=== PATIENT | male | born 1985 | race Caucasian/White ===

== ENCOUNTER 2017-01-20 15:47 | Emergency (ER) | payer MEDICAID ==
[2017-01-20 15:57] VITALS: BP 122/78
--- NOTE | 2017-01-20 16:08 | EDM.PDOC ---
ED HPI Trauma - General Chief Complaint: Lower Extremity Injury/Pain Stated Complaint: R LEG NUMBNESS Time Seen by Provider: 01/20/17 16:08 Source: Reports: Patient History Limitations: Reports: No limitations - History of Present Illness INITIAL COMMENTS - FREE TEXT/NARRATIVE: 31-year-old male presents the ED with complaints of severe pain in his right groin and buttock area his entire leg being numb. States he can't weight-bear on it because it won't hold his weight. No known injuries slips and falls in the last 2-3 days. No other pain or problems. He states he when he went to bed last night he was fine. He is unable to lift the leg off the gurney due to pain in the groin. History is suspect from the get go. Symptom Onset Date: 01/20/17 (Awoke with the symptoms this morning.) Occurred When: this morning Occurred Where: home Method of Injury: other (No known injuries.) Severity: severe (States it so weak and painful to walk on it that he can't walk. He came into the ED in a wheelchair) Pain/Injury Location: Reports: lower extremity, right Associated Symptoms: Reports: no other symptoms Allergies/ADRs: Allergies No Known Allergies Allergy (Verified 04/09/16 00:15) Home Medications: Ambulatory Orders Albuterol [Ventolin HFA] 2 puff INH BID PRN 04/09/16 [Confirmed 01/20/17] Diclofenac Sodium [Voltaren] 50 mg PO TIDMEALS #24 tab.ec 01/20/17 Prednisone [IMW: predniSONE] 20 mg PO BID #15 tab 01/20/17 oxyCODONE HCl/Acetaminophen [Percocet 5-325 mg Tablet] 1 - 2 each PO Q4H PRN # 20 tablet 01/20/17 Past Medical History Respiratory History: Reports: Asthma Social & Family History - Tobacco Use Smoking Status *Q: Current Every Day Smoker Years of Tobacco use: 12 Packs/Tins Daily: 0.5 - Caffeine Use Caffeine Use: Reports: Coffee, Soda - Alcohol Use Days Per Week of Alcohol Use: 7 Number of Drinks Per Day: 4 Total Drinks Per Week: 28 - Recreational Drug Use Recreational Drug Use: Yes Drug Use in Last 12 Months: Yes Recreational Drug Type: Reports: Heroin, Methamphetamine Recreational Drug Use Frequency: Binges - Living Situation & Occupation Occupation: unemployed Review of Systems - Review of Systems Review Of Systems: See Below Constitutional: Denies: chills, diaphoresis, fever, weakness, other Eyes: Reports: no symptoms Ears: Reports: no symptoms Nose: Reports: no symptoms Mouth/Throat: Reports: no symptoms Respiratory: Reports: No Symptoms Cardiovascular: Reports: no symptoms GI/Abdominal: Reports: No symptoms Skin: Reports: no symptoms Neurological: Reports: No Symptoms Psychiatric: Reports: no symptoms Trauma Exam - Physical Exam Exam: See Below Exam Limited By: No limitations General Appearance: Reports: alert, no apparent distress, thin (On the thin side.), other Head: Reports: atraumatic, normocephalic Respiratory Exam: Reports: no respiratory distress, lungs clear, normal breath sounds, no accessory muscle use Cardiovascular: Reports: normal peripheral pulses, regular rate, rhythm, no edema, no gallop, no murmur GI/Abdominal: Reports: normal bowel sounds, soft, non tender, no organomegaly, other (No hernia no inguinal adenopathy on the right side.) Back: Reports: other (He has severe tenderness on palpation throughout the right sacroiliac joint.). Denies: CVA tenderness (R), CVA tenderness (L) Extremities: Reports: no evidence of injury, other (Edition can't lift his right leg off the gurney due to pain. He has pain along the medial aspect of the thigh abductor miguel muscle/tendon distribution. I cannot logroll the leg internally and externally hip with straight leg without causing pain. At the left leg in did cause some pain on external rotation and internal rotation of the hip. Marked pain on palpation of the right sacroiliac joint.). Denies: normal range of motion Neurologic: Reports: no motor/sensory deficits, alert, normal mood/affect, oriented x 3, other (His reflexes in his patellar reflexes are equal and plus and symmetrical as are the ankle jerks.) Skin: Reports: Normal color ( Babinski's are both downgoing.), Warm/dry, Other - Jarad Coma Score Best Eye Response ([place]): (4) open spontaneously (Good dorsalis pedis and posterior tibial pulses on the right side) Best Verbal Response (Jarad): (5) oriented Best Motor Response ([place]): (6) obeys commands Course - Vital Signs Last Recorded V/S: Last Vital Signs Temp 36.7 C 01/20/17 15:53 Pulse 103 H 01/20/17 15:53 Resp 12 01/20/17 15:53 BP 122/78 01/20/17 15:53 Pulse Ox 100 01/20/17 15:53 - Orders/Labs/Meds Orders: Active Orders 24 hr Category Date Time Status Pelvis 1V or 2V [CR] Stat Exams 01/20/17 16:19 Taken Meds: Medications Discontinued Medications Generic Name Dose Route Start Last Admin Trade Name Ankush PRN Reason Stop Dose Admin Indomethacin 50 mg 01/20/17 16:42 01/20/17 16:49 Indocin PO 01/20/17 16:43 50 mg ONETIME ONE Administration Prednisone 30 mg 01/20/17 16:42 01/20/17 16:50 Prednisone PO 01/20/17 16:43 30 mg ONETIME ONE Administration - Radiology Interpretation Free Text/Narrative:: 31-year-old male presents the ED with pain in his right buttock and right medial thigh complains of his entire leg is known and tingling. This was finally went to bed last night. He states he cannot lift the leg up off the gurney due to weakness in the groin. His pain in the distribution of the abductor miguel muscle and tendon in the right groin. Marked tenderness and pain to the right sacroiliac joint. Patellar and ankle reflexes are present. The remainder the leg is of normal color with good pulses. 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 He denies any falls or recent injuries but this remains suspect. He has no fever or chills. Plan one view of the pelvis x-ray to be obtained. - Re-Assessments/Exams Free Text/Narrative Re-Assessment/Exam: 01/20/17 16:44 x-ray of the pelvis is completely normal. SI joints are normal. Hip and acetabulum are normal as well. He appears to have some inflammation in the sacroiliac joint. We'll treat him with prednisone 30 mg orally now and indomethacin 50 mg by mouth as well. He'll be discharged home on prednisone 20 mg twice a day for 5 days and then once daily in the morning for another [address] him on Voltaren 50mg tablets every 8 hours for the next 8 days to relieve inflammation and pain. Since he says he can walk on his leg due to the pain he would be placed on crutches be nonweightbearing until he can walk with little discomfort. On watching him get up from the gurney he appears to have genuine pain. Given script for Percocet 5/325mg tabs 1-2 every 6hrs prn for pain not controlled by Voltaren alone. Departure - Departure Time of Disposition: 16:56 Disposition: Home, Self-Care 01 Condition: fair Clinical Impression: Pain of right anterior lower extremity, Right leg paresthesias Prescriptions: Diclofenac Sodium [Voltaren] 50 mg PO TIDMEALS #24 tab.ec Prednisone [IMW: predniSONE] 20 mg PO BID #15 tab oxyCODONE HCl/Acetaminophen [Percocet 5-325 mg Tablet] 1 - 2 each PO Q4H PRN # 20 tablet PRN Reason: pain relief. Referrals: Nevaeh Humphrey NP [Primary Care Provider] - Forms: ED Department Discharge Additional Instructions: Evaluation in the emergency today in regards to sudden onset of pain in your right hip and groin. This causes the entire leg to feel numb tingly and burning which we call paresthesias. Pain is bad enough to the point that she cannot weight-bear on her own. The pelvis was performed and does not reveal any signs of bone disease and the hip or SI joint. For whatever reason there appears to be inflammation along the abductor miguel tendon insertion site at the groin and in the sacroiliac joint is very inflamed on the right side. There is no inflammation or infection in the right hip joint. Treatment is time to heal. Use prednisone 20 mg in the morning and set supper for the next 5 days and Ventolin morning only for another 5 days. He is Voltaren 50 mg 3 times daily for the next 8 days to relieve pain and inflammation.May use Percocet tabs 5/3235mg 1-2 tabs every 6hrs for pain not controlled by Voltaren alone. To be nonweightbearing crutch walking until you can weight-bear without pain. If not completely back to normal in 7 days time he need to be reviewed. - My Orders Last 24 Hours: My Active Orders 01/20/17 16:19 Pelvis 1V or 2V [CR] Stat - Assessment/Plan Last 24 Hours: My Active Orders 01/20/17 16:19 Pelvis 1V or 2V [CR] Stat
[2017-01-20] MEDS ORDERED: Indomethacin 25 MG Cap PO ONE (16:42)
[2017-01-20] MEDS ORDERED: predniSONE 20 MG Tab PO ONE (16:42)
--- NOTE | 2017-01-21 08:18 | CR ---
Pelvis: AP view of the pelvis was obtained. Comparison: No previous study. Joint spaces within both hips are maintained. Left sacroiliac joint appears narrowed as compared to the right side which is likely positional. No fracture or other abnormality is identified. Impression: 1. Finding felt to be incidental as described above. 2. AP pelvis study is otherwise unremarkable. Diagnostic code #1
== END 2017-01-20 17:07 | disposition home or self-care (01) ==
LOC: JD.ED 15:47
DX: R20.9 Unspecified disturbances of skin sensation (principal); M79.604 Pain in right leg; J45.909 Unspecified asthma, uncomplicated; F17.210 Nicotine dependence, cigarettes, uncomplicated
CPT/HCPCS: 72170; 99284; A9270; 99283

== ENCOUNTER 2017-02-05 07:14 | Emergency (ER) | payer MEDICAID ==
--- NOTE | 2017-02-05 07:35 | EDM.PDOC ---
ED HPI Trauma - General Chief Complaint: Lower Extremity Injury/Pain Stated Complaint: RIGHT LEG PAIN Time Seen by Provider: 02/05/17 07:31 Source: Reports: Patient History Limitations: Reports: No limitations - History of Present Illness INITIAL COMMENTS - FREE TEXT/NARRATIVE: 31-year-old male presents the ED for evaluation of swelling of his right lower extremity. Patient had been seen through the ED by me 2 weeks ago with diffuse pain in the right leg particularly the upper thigh at the abductor miguel insertion and along the SI joint. He been treated with an 8 day course of Voltaren 50 mg 3 times daily and a course of prednisone 20 mg twice a day for 5 days and then one tablet a morning for further 5 days. He states he was able to ambulate still having pain up in the hip and lower back area. However he is appreciated marked swelling of his right lower extremity over the last 3 days. He is too painful to walk on. Note he was discharged on crutches. He has been laying around a good deal and therefore it has increased risk of development of a DVT. No history of previous DVT. History of intravenous drug abuse primarily but with the use of heroin. Symptom Onset Date: 02/02/17 (Initially seen January 20 with right lower extremity pain which we felt was musculoskeletal in origin and sacroiliac joint in origin.) Occurred When: other (Gradual occurrence of the last 3-4 days.) Occurred Where: other Method of Injury: other Severity: moderate (No known injury to the lower extremity.) Pain/Injury Location: Reports: lower extremity, right Associated Symptoms: Reports: no other symptoms (Denies shortness of breath or any pleuritic chest pain or cough no hemoptysis.) Allergies/ADRs: Allergies No Known Allergies Allergy (Verified 02/05/17 07:24) Home Medications: Ambulatory Orders Butalb/Acetaminophen/Caffeine [Esgic 50-325-40 mg Tablet] 1 - 2 each PO Q6H PRN #15 tablet 02/05/17 Furosemide [Lasix] 20 mg PO DAILY #7 tablet 02/05/17 Past Medical History Respiratory History: Reports: Asthma Social & Family History - Tobacco Use Smoking Status *Q: Current Every Day Smoker Years of Tobacco use: 20 Packs/Tins Daily: 0.5 - Caffeine Use Caffeine Use: Reports: Coffee, Soda - Alcohol Use Days Per Week of Alcohol Use: 7 Number of Drinks Per Day: 4 Total Drinks Per Week: 28 - Recreational Drug Use Recreational Drug Use: Yes Drug Use in Last 12 Months: Yes Recreational Drug Type: Reports: Heroin, Methamphetamine Recreational Drug Use Frequency: Binges - Living Situation & Occupation Occupation: unemployed Review of Systems - Review of Systems Review Of Systems: See Below Constitutional: Reports: no symptoms Eyes: Reports: no symptoms Ears: Reports: no symptoms Nose: Reports: no symptoms Mouth/Throat: Reports: no symptoms Respiratory: Reports: No Symptoms Cardiovascular: Reports: no symptoms GI/Abdominal: Reports: No symptoms Genitourinary: Reports: no symptoms Musculoskeletal: Reports: other (Swelling of the right lower extremity particularly the calf is at least double size compared to the left side. There is no erythema of the leg although it is quite warm to palpation along the calf. ) Skin: Reports: no symptoms Neurological: Reports: No Symptoms Psychiatric: Reports: no symptoms Trauma Exam - Physical Exam Exam: See Below Exam Limited By: No limitations General Appearance: Reports: alert, WD/WN, no apparent distress Head: Reports: atraumatic, normocephalic Throat/Mouth: Reports: Normal inspection, Normal lips, Normal teeth, Normal gums , Normal oropharynx Neck: Reports: non-tender, full range of motion, normal alignment Respiratory Exam: Reports: no respiratory distress, lungs clear, normal breath sounds, no accessory muscle use Cardiovascular: Reports: normal peripheral pulses, regular rate, rhythm, no edema, no gallop, no murmur, no rub GI/Abdominal: Reports: normal bowel sounds, soft, non tender, no organomegaly Extremities: Reports: normal range of motion, other (Examination of the right lower extremity shows marked swelling throughout the extremity particularly the calf. The calf is at least 2 times normal size of the other leg. He is good posterior tibialis pulses and dorsalis pedis pulses in spite of the edema of the foot. The edema is troubles past the knee into the distal medial femur area. He is able to lift the leg off the gurney without any issue. He has full internal/external rotation at the hip. He reports is fractionating still operator in the groin and hip area. but is walking on it) Skin: Reports: Normal color - [place] Coma Score Best Eye Response ([place]): (4) open spontaneously Best Verbal Response (Jarad): (5) oriented Best Motor Response (Jarad): (6) obeys commands Clyde Total: 15 Course - Vital Signs Last Recorded V/S: Last Vital Signs Temp 37.1 C 02/05/17 07:24 Pulse 57 L 02/05/17 07:24 Resp 16 02/05/17 07:24 BP 131/108 H 02/05/17 07:24 Pulse Ox 99 02/05/17 07:24 - Orders/Labs/Meds Orders: Active Orders 24 hr Category Date Time Status Peripheral IV Care [RC] . DIRECTED Care 02/05/17 11:13 Active ANTICARDIOLIPIN AB PANEL IGG/M [REF] Stat Lab 02/05/17 08:15 Received ANTITHROMBIN III ACTIVITY [REF] Stat Lab 02/05/17 08:15 Received FACTOR 5 LEIDEN MUTATION [REF] Stat Lab 02/05/17 08:15 Received PROTEIN C AND S ACTIVITY [REF] Stat Lab 02/05/17 08:15 Received Sodium Chloride 0.9% [Saline Flush] Med 02/05/17 11:13 Active 10 ml FLUSH ASDIRECTED PRN Peripheral IV Insertion Adult [OM.PC] Stat Oth 02/05/17 11:13 Ordered Medication Orders Sodium Chloride (Saline Flush) 10 ml FLUSH ASDIRECTED PRN PRN Reason: Keep Vein Open Labs: Laboratory Tests 02/05/17 02/05/17 02/05/17 Range/Units 08:15 08:15 08:15 WBC 7.28 (4.23-9.07) K/mm3 RBC 3.81 L (4.63-6.08) M/mm3 Hgb 12.0 L (13.7-17.5) gm/L Hct 34.7 L (40.1-51.0) % MCV 91.1 (79.0-92.2) fl MCH 31.5 (25.7-32.2) pg MCHC 34.6 (32.2-35.5) g/dl RDW Std Deviation 40.0 (35.1-43.9) fL Plt Count 229 (163-337) K/mm3 MPV 10.1 (9.4-12.3) fl Neutrophils % (Manual) 75 H (40-60) % Band Neutrophils % 1 (0-10) % Lymphocytes % (Manual) 16 L (20-40) % Atypical Lymphs % 0 % Monocytes % (Manual) 5 (2-10) % Eosinophils % (Manual) 3 (0.8-7.0) % Basophils % (Manual) 0 L (0.2-1.2) Platelet Estimate Adequate RBC Morph Comment Normal ESR (0-15) mm/hr PT 10.9 (8.0-13.0) SECONDS INR 1.00 D-Dimer, Quantitative 1.55 H (0.19-0.59) mg/L Sodium 139 (136-145) mEq/L Potassium 3.3 L (3.5-5.1) mEq/L Chloride 102 (98-107) mEq/L Carbon Dioxide 34 H (21-32) mEq/L Anion Gap 6.3 (5-15) BUN 12 (7-18) mg/dL Creatinine 1.2 (0.7-1.3) mg/dL Est Cr Clr Drug Dosing 92.40 mL/min Estimated GFR (MDRD) > 60 (>60) mL/min BUN/Creatinine Ratio 10.0 L (14-18) Glucose 97 (74-106) mg/dL Calcium 8.5 (8.5-10.1) mg/dL Total Bilirubin 0.4 (0.2-1.0) mg/dL AST 37 (15-37) U/L ALT 56 (16-63) U/L Alkaline Phosphatase 46 (46-116) U/L Total Protein 5.8 L (6.4-8.2) g/dl Albumin 3.1 L (3.4-5.0) g/dl Globulin 2.7 gm/dL Albumin/Globulin Ratio 1.2 (1-2) 02/05/17 Range/Units 08:15 WBC (4.23-9.07) K/mm3 RBC (4.63-6.08) M/mm3 Hgb (13.7-17.5) gm/L Hct (40.1-51.0) % MCV (79.0-92.2) fl MCH (25.7-32.2) pg MCHC (32.2-35.5) g/dl RDW Std Deviation (35.1-43.9) fL Plt Count (163-337) K/mm3 MPV (9.4-12.3) fl Neutrophils % (Manual) (40-60) % Band Neutrophils % (0-10) % Lymphocytes % (Manual) (20-40) % Atypical Lymphs % % Monocytes % (Manual) (2-10) % Eosinophils % (Manual) (0.8-7.0) % Basophils % (Manual) (0.2-1.2) Platelet Estimate RBC Morph Comment ESR 14 (0-15) mm/hr PT (8.0-13.0) SECONDS INR D-Dimer, Quantitative (0.19-0.59) mg/L Sodium (136-145) mEq/L Potassium (3.5-5.1) mEq/L Chloride (98-107) mEq/L Carbon Dioxide (21-32) mEq/L Anion Gap (5-15) BUN (7-18) mg/dL Creatinine (0.7-1.3) mg/dL Est Cr Clr Drug Dosing mL/min Estimated GFR (MDRD) (>60) mL/min BUN/Creatinine Ratio (14-18) Glucose (74-106) mg/dL Calcium (8.5-10.1) mg/dL Total Bilirubin (0.2-1.0) mg/dL AST (15-37) U/L ALT (16-63) U/L Alkaline Phosphatase (46-116) U/L Total Protein (6.4-8.2) g/dl Albumin (3.4-5.0) g/dl Globulin gm/dL Albumin/Globulin Ratio (1-2) Meds: Medications Generic Name Dose Route Start Last Admin Trade Name Freq PRN Reason Stop Dose Admin Sodium Chloride 10 ml 02/05/17 11:13 Saline Flush FLUSH ASDIRECTED PRN Keep Vein Open Discontinued Medications Generic Name Dose Route Start Last Admin Trade Name Freq PRN Reason Stop Dose Admin Iopamidol 150 ml 02/05/17 11:28 02/05/17 11:48 Isovue-300 (61%) IVPUSH 02/05/17 11:29 150 ml ONETIME ONE Administration Sodium Chloride 10 ml 02/05/17 11:28 02/05/17 11:48 Saline Flush FLUSH 02/05/17 11:29 10 ml ONETIME ONE Administration - Radiology Interpretation Free Text/Narrative:: 31-year-old male presents the ED for evaluation of diffuse swelling of the right lower extremity. He reports this is occurred over the last 3 days. Of note I had seen to the ED with right lower chimney pain on January 20. We felt it was most the skeletal in origin along the abductor miguel and SI joint area. He was treated with a ten-day course of prednisone initially twice a day and then once daily in the morning for 5 days. Also Voltaren 50 mg 3 times a day for 8 days. He reports the hip and leg got better but he still is limping with pain in his hip area. No x-rays of the hip and pelvis were done at that time and were negative. He reports that the leg has become more swollen particularly the calf over the last 3 days. He can no longer weight-bear. Denies any associated shortness of breath or pleuritic chest pain. Examination shows good pulses to the foot. The calf itself is quite warm to palpation. It is obviously swollen it is tender to palpation medially. Clinically he has a DVT in the right lower extremity. Plan routine labs to include genetic markers for hypercoagulable state. D-dimer also ordered. PT/INR. Ultrasound of the lower extremity but to be carried out. - Re-Assessments/Exams Free Text/Narrative Re-Assessment/Exam: 02/05/17 09:06 labs are back showing a white count of 7.28 with 75% neutrophils 1% bands. Hemoglobin is 12.0 hematocrit is 34.7. Platelets are normal at 229, 000. Coags are normal. D-dimer is mildly elevated at 1.55. Chemistry shows a sodium of 139 potassium of 3.3 bicarbonate is elevated at 34 albumin fresh slightly low at 3.1. 02/05/17 11:17 the ultrasound of the right lower extremity came back revealing no evidence of clot within the deep venous system. A identify subcutaneous in edema throughout the lower extremity. This concerns me about poor lymphatic drainage from the lower extremity on the right side in a splint complaining of right groin pain for the last 3 weeks. Therefore going to have CT pulmonary angiogram and CT abdomen and pelvis carried out to look for any other potential obstructions to the lymphatic drainage system. Lab tests at not point is in any specific direction. 02/05/17 12:24 CT of the chest abdomen and pelvis is been completed. It does not reveal any abnormalities. Spleen is upper limits of normal in size. 12.2 cm. There is no obstructive adenopathy noted no sign of any compressive lesions that would include lymphatic drainage back to the heart. Radiologist reports diffuse body wall edema. Of note he has normal renal function with the GFR greater than 60. Albumin is a little low at 3.1. Plan I'm going to place him on Esgec medication for pain relief and Lasix 20 mg once a day in the morning for the next week to get rid of the extra fluid primarily his right leg. He will followup if not markedly improved in 7 days time. Departure - Departure Time of Disposition: 12:27 Disposition: Home, Self-Care 01 Condition: fair Clinical Impression: Dependent edema Prescriptions: Butalb/Acetaminophen/Caffeine [Esgic 50-325-40 mg Tablet] 1 - 2 each PO Q6H PRN #15 tablet PRN Reason: Pain relief Furosemide [Lasix] 20 mg PO DAILY #7 tablet Forms: ED Department Discharge Additional Instructions: Evaluation in the emergency day done primarily due to presentation with the obviously swollen right lower leg. Worrisome for underlying deep venous thrombosis or blood clot in the leg. Blood tests did not reveal any abnormalities of the kidneys. Doppler ultrasound did not reveal any blood clot within the leg. Therefore CT scan of the chest and abdomen was performed to reveal there was any problem with return of blood or lymphatics from the lower extremities back to the heart. No abnormalities were appreciated on this exam either. Therefore I cannot explain why the right leg remains swollen. Treatment is to elevate the leg as much as possible ideally above the level of the heart appear lying down on the couch place him on a couple of pillows etc. To place you on medication called Lasix which is to be taken once daily in the morning for the next 7 days to reduce the amount of fluid collection in the lower extremity. May use a stick medication one tablet every 6 hours as needed for relief of pain if needed. This will have no ill effects on the kidney to make you retain fluid. - My Orders Last 24 Hours: My Active Orders 02/05/17 08:15 ANTICARDIOLIPIN AB PANEL IGG/M [REF] Stat ANTITHROMBIN III ACTIVITY [REF] Stat FACTOR 5 LEIDEN MUTATION [REF] Stat PROTEIN C AND S ACTIVITY [REF] Stat 02/05/17 11:13 Peripheral IV Care [RC] . DIRECTED Sodium Chloride 0.9% [Saline Flush] 10 ml FLUSH ASDIRECTED PRN Peripheral IV Insertion Adult [OM.PC] Stat - Assessment/Plan Last 24 Hours: My Active Orders 02/05/17 08:15 ANTICARDIOLIPIN AB PANEL IGG/M [REF] Stat ANTITHROMBIN III ACTIVITY [REF] Stat FACTOR 5 LEIDEN MUTATION [REF] Stat PROTEIN C AND S ACTIVITY [REF] Stat 02/05/17 11:13 Peripheral IV Care [RC] . DIRECTED Sodium Chloride 0.9% [Saline Flush] 10 ml FLUSH ASDIRECTED PRN Peripheral IV Insertion Adult [OM.PC] Stat
--- NOTE | 2017-02-05 10:39 | US ---
Right lower extremity deep venous ultrasound: Multiple real-time images were obtained of the right common femoral, proximal greater saphenous, superficial femoral, popliteal, posterior tibial and peroneal veins. Subcutaneous edema is seen within the mid and distal thigh. Incidental lymph node is seen within the right groin. Soft tissue edema is noted within the lower extremity below the knee. Normal phasic flow, augmentation and compression is seen. Impression: 1. Subcutaneous edema. 2. No findings of deep venous thrombosis is seen within the right lower extremity or within the left common femoral vein. Diagnostic code #3
[2017-02-05] MEDS ORDERED: Sodium Chloride 0.9% 10 ML Syringe FLUSH PRN (11:13)
[2017-02-05] MEDS ORDERED: Iopamidol 612 MG/ML 150 ML Bottle IVPUSH ONE (11:28)
[2017-02-05] MEDS ORDERED: Sodium Chloride 0.9% 10 ML Syringe FLUSH ONE (11:28)
--- NOTE | 2017-02-05 12:21 | CT ---
CT chest Technique: Multiple axial sections were obtained through the chest. Intravenous contrast was utilized. Findings: Mediastinum and hilar regions show no adenopathy or mass. No pericardial thickening is seen. Mild atelectasis is seen posteriorly within the left lung base. Lungs otherwise are clear. Bone window settings were reviewed which appear within normal limits for the patient's age. Impression: 1. Incidental left basilar atelectasis. 2. CT study of the chest is otherwise unremarkable. Diagnostic code #2 CT abdomen and pelvis Technique: Multiple axial sections were obtained through the abdomen and pelvis. Intravenous contrast was utilized. No oral contrast was given which limits evaluation of bowel and processes around the bowel. Findings: Liver shows no focal abnormality. Spleen appears within normal limits. Spleen size is 12.2 cm. Adrenal glands show no nodule. Pancreas appears within normal limits. Kidneys show contrast enhancement. Several small adjacent nonobstructing calculi are noted within the left kidney. Diffuse body wall edema is identified. Aorta shows no aneurysmal dilatation. No retroperitoneal adenopathy or mesenteric abnormalities are seen. No pelvic mass or adenopathy is seen. Delayed images shows contrast within the bladder. No mass effect is seen around the internal or external iliac arteries. Bone window settings were reviewed which appear within normal limits for the patient's age. Impression: 1. Diffuse body wall edema. 2. Incidental nonobstructing calculi within the left kidney. 3. No additional abnormality is appreciated on CT study of the abdomen. Diagnostic code #3
[2017-02-05 12:59] VITALS: BP 127/75
== END 2017-02-05 13:00 | disposition home or self-care (01) ==
LOC: JD.ED 07:14
DX: R60.9 Edema, unspecified (principal); Z79.899 Other long term (current) drug therapy; F17.200 Nicotine dependence, unspecified, uncomplicated; F15.90 Other stimulant use, unspecified, uncomplicated; F11.90 Opioid use, unspecified, uncomplicated
CPT/HCPCS: 36415; 71260; 74177; 80053; 81241; 85025; 85300; 85303; 85306; 85379; 85610; 85652; 86147; 93971; 99284; J7050; Q9967

== ENCOUNTER 2017-08-13 00:07 | Emergency (ER) | payer SELFPAY ==
[2017-08-13 00:25] VITALS: BP 149/85
--- NOTE | 2017-08-13 01:32 | EDM.PDOC ---
ED HPI GENERAL MEDICAL PROBLEM - General Chief Complaint: Drug or Alcohol Abuse Stated Complaint: [facility] Time Seen by Provider: 08/13/17 00:44 Source of Information: Reports: Patient, EMS, RN Notes Reviewed History Limitations: Reports: No Limitations - History of Present Illness INITIAL COMMENTS - FREE TEXT/NARRATIVE: The patient was found unresponsive in his home by his girlfriend, who called EMS. EMS reports that they gave a total of 5 mg of IV Narcan, but that there was some infiltration, and they estimate that he received about 4 mg. The patient subsequently woke up, and has remained awake ever since. The patient states that he shot 1/10 g of heroin at an unknown time today. He states that he has been using heroin since he was 23 years old, always by injection, and that he has overdosed on heroin 5 times previously. He states that he also uses methamphetamine by injection, and smokes marijuana. He also drinks alcohol to excess, most recently yesterday. He states that he has been in inpatient treatment 4 or 5 times, most recently while [facility]. He states that he was in [facility] for 9 months, until 04/05/2015. He does not attend any outpatient treatment, such as NA or AA. The patient's PCP is Nevaeh Humphrey. He states that he last saw her about 6 months ago. - Related Data Allergies Allergy/AdvReac Type Severity Reaction Status Date / Time No Known Allergies Allergy Verified 08/13/17 00:14 Past Medical History Respiratory History: Reports: Asthma Psychiatric History: Reports: Addiction - Infectious Disease History Infectious Disease History: Reports: Hepatitis C - Past Surgical History HEENT Surgical History: Reports: Oral Surgery ([place] teeth extraction) Social & Family History - Tobacco Use Smoking Status *Q: Current Every Day Smoker Years of Tobacco use: 23 Packs/Tins Daily: 1.5 Packs/Tins Daily Comment: Down from 2 ppd - Caffeine Use Caffeine Use: Reports: Coffee, Soda - Alcohol Use Alcohol Use History: Yes Days Per Week of Alcohol Use: 7 Number of Drinks Per Day: 5 Total Drinks Per Week: 35 Alcohol Use Frequency: Daily - Recreational Drug Use Recreational Drug Use: Yes Drug Use in Last 12 Months: Yes Recreational Drug Type: Reports: Heroin (by injection), Marijuana/Hashish ( smokes), Methamphetamine (by injection) Recreational Drug Use Frequency: Daily - Living Situation & Occupation Living situation: Reports: Single, with Family (Mother) Occupation: Unemployed ED ROS GENERAL - Review of Systems Review Of Systems: See Below Constitutional: Reports: No Symptoms HEENT: Reports: No Symptoms Respiratory: Reports: No Symptoms Cardiovascular: Reports: No Symptoms Endocrine: Reports: No Symptoms GI/Abdominal: Reports: No Symptoms : Reports: No Symptoms Musculoskeletal: Reports: No Symptoms Skin: Reports: No Symptoms Neurological: Reports: No Symptoms Psychiatric: Reports: No Symptoms Hematologic/Lymphatic: Reports: No Symptoms Immunologic: Reports: No Symptoms - Physical Exam Exam: See Below Exam Limited By: No Limitations General Appearance: Alert, WD/WN, No Apparent Distress Eye Exam: Bilateral Eye: Normal Inspection Ears: Normal External Exam, Hearing Grossly Normal Nose: Normal Inspection, No Blood Throat/Mouth: Normal Inspection, Normal Lips, Normal Voice, No Airway Compromise Head Exam: Atraumatic, Normocephalic Neck: Normal Inspection, Full Range of Motion Respiratory/Chest: No Respiratory Distress, Lungs Clear, Normal Breath Sounds, No Accessory Muscle Use Cardiovascular: Normal Peripheral Pulses, Regular Rate, Rhythm, No Gallop, No JVD, No Murmur, No Rub GI/Abdominal: Normal Bowel Sounds, Soft, Non-Tender, No Organomegaly, No Distention, No Abnormal Bruit, No Mass (Male) Exam: Deferred Rectal (Males) Exam: Deferred Neuro Exam (Abbreviated): Alert, Oriented, Normal Cognition, No Motor/Sensory Deficits Back Exam: Normal Inspection, Full Range of Motion, NT Extremities: Normal Inspection, Normal Range of Motion, No Pedal Edema, Normal Capillary Refill, Other (Numerous track escamilla noted to the bilateral upper extremities) Psychiatric: Normal Affect Skin Exam: Warm, Dry, Intact, Normal Color, No Rash Course - Vital Signs Last Recorded V/S: Last Vital Signs Temp 37.1 C 08/13/17 00:21 Pulse 100 08/13/17 00:21 Resp 21 H 08/13/17 00:21 BP 149/85 H 08/13/17 00:21 Pulse Ox 99 08/13/17 00:21 - Orders/Labs/Meds Labs: Laboratory Tests 08/13/17 08/13/17 08/13/17 Range/Units 01:00 01:00 01:00 WBC 6.19 (4.23-9.07) K/mm3 RBC 4.84 (4.63-6.08) M/mm3 Hgb 15.0 (13.7-17.5) gm/L Hct 44.2 (40.1-51.0) % MCV 91.3 (79.0-92.2) fl MCH 31.0 (25.7-32.2) pg MCHC 33.9 (32.2-35.5) g/dl RDW Std Deviation 44.2 H (35.1-43.9) fL Plt Count 222 (163-337) K/mm3 MPV 10.2 (9.4-12.3) fl Neutrophils % (Manual) 59 (40-60) % Band Neutrophils % 1 (0-10) % Lymphocytes % (Manual) 34 (20-40) % Atypical Lymphs % 0 % Monocytes % (Manual) 3 (2-10) % Eosinophils % (Manual) 3 (0.8-7.0) % Basophils % (Manual) 0 L (0.2-1.2) Platelet Estimate Adequate RBC Morph Comment Normal PT 11.7 (8.0-13.0) SECONDS INR 1.07 APTT 29 (22-36) SECONDS D-Dimer, Quantitative 2.38 H (0.19-0.59) mg/L Sodium 141 (136-145) mEq/L Potassium 4.5 (3.5-5.1) mEq/L Chloride 103 (98-107) mEq/L Carbon Dioxide 29 (21-32) mEq/L Anion Gap 13.5 (5-15) BUN 21 H (7-18) mg/dL Creatinine 1.3 (0.7-1.3) mg/dL Est Cr Clr Drug Dosing 87.69 mL/min Estimated GFR (MDRD) > 60 (>60) mL/min BUN/Creatinine Ratio 16.2 (14-18) Glucose 92 (74-106) mg/dL Lactic Acid (0.4-2.0) mmol/L Calcium 9.0 (8.5-10.1) mg/dL Total Bilirubin 1.6 H (0.2-1.0) mg/dL AST 548 H (15-37) U/L ALT 627 H (16-63) U/L Alkaline Phosphatase 81 (46-116) U/L Creatine Kinase 155 (39-308) U/L Troponin I < 0.017 (0.00-0.056) ng/mL Total Protein 7.4 (6.4-8.2) g/dl Albumin 3.8 (3.4-5.0) g/dl Globulin 3.6 gm/dL Albumin/Globulin Ratio 1.1 (1-2) Salicylates (2.8-20) mg/dL Acetaminophen 0 L (10-30) ug/mL Ethyl Alcohol 0.00 (0.00) gm% 08/13/17 08/13/17 Range/Units 01:00 01:00 WBC (4.23-9.07) K/mm3 RBC (4.63-6.08) M/mm3 Hgb (13.7-17.5) gm/L Hct (40.1-51.0) % MCV (79.0-92.2) fl MCH (25.7-32.2) pg MCHC (32.2-35.5) g/dl RDW Std Deviation (35.1-43.9) fL Plt Count (163-337) K/mm3 MPV (9.4-12.3) fl Neutrophils % (Manual) (40-60) % Band Neutrophils % (0-10) % Lymphocytes % (Manual) (20-40) % Atypical Lymphs % % Monocytes % (Manual) (2-10) % Eosinophils % (Manual) (0.8-7.0) % Basophils % (Manual) (0.2-1.2) Platelet Estimate RBC Morph Comment PT (8.0-13.0) SECONDS INR APTT (22-36) SECONDS D-Dimer, Quantitative (0.19-0.59) mg/L Sodium (136-145) mEq/L Potassium (3.5-5.1) mEq/L Chloride (98-107) mEq/L Carbon Dioxide (21-32) mEq/L Anion Gap (5-15) BUN (7-18) mg/dL Creatinine (0.7-1.3) mg/dL Est Cr Clr Drug Dosing mL/min Estimated GFR (MDRD) (>60) mL/min BUN/Creatinine Ratio (14-18) Glucose (74-106) mg/dL Lactic Acid 1.3 (0.4-2.0) mmol/L Calcium (8.5-10.1) mg/dL Total Bilirubin (0.2-1.0) mg/dL AST (15-37) U/L ALT (16-63) U/L Alkaline Phosphatase (46-116) U/L Creatine Kinase (39-308) U/L Troponin I (0.00-0.056) ng/mL Total Protein (6.4-8.2) g/dl Albumin (3.4-5.0) g/dl Globulin gm/dL Albumin/Globulin Ratio (1-2) Salicylates < 0.2 L (2.8-20) mg/dL Acetaminophen (10-30) ug/mL Ethyl Alcohol (0.00) gm% - Re-Assessments/Exams Free Text/Narrative Re-Assessment/Exam: 08/13/17 01:29 The patient states that he would like to leave AMA. He was hoping that we could notify him of his lab results. I explained we do not have a mechanism to do that. He stated that he wanted to leave AMA, anyway. Following the Narcan given by EMS, the patient has remained awake. Departure - Departure Time of Disposition: 01:30 Disposition: Against Medical Advice 07 Condition: Fair Clinical Impression: Accidental heroin overdose - Discharge Information Referrals: PCP,None [Primary Care Provider] - Additional Instructions: You were seen in the emergency room after being found unresponsive at home. You were provided by the paramedics with Narcan. You suffered a heroin overdose. You have elected to leave the ER AGAINST MEDICAL ADVICE without waiting for your test results. We STRONGLY recommend that you seek professional help to try to get off drugs, either at [facility] or elsewhere. If any other problems, please do not hesitate to return to the ER.
[2017-08-13 01:41] LABS: ACETAMINOPHEN 0 ug/mL (10-30)
== END 2017-08-13 01:31 | disposition left against medical advice (07) ==
LOC: JD.ED 00:07
DX: T40.1X1A Poisoning by heroin, accidental (unintentional), initial encounter (principal); F17.210 Nicotine dependence, cigarettes, uncomplicated; J45.909 Unspecified asthma, uncomplicated; F15.10 Other stimulant abuse, uncomplicated; F12.10 Cannabis abuse, uncomplicated
CPT/HCPCS: 36415; 80053; 82550; 83605; 84484; 85025; 85379; 85610; 85730; 99284; G0480

== ENCOUNTER 2017-09-11 12:01 | Emergency (ER) | payer OTHER ==
[2017-09-11] MEDS ORDERED: Sodium Chloride 0.9% 10 ML Syringe FLUSH PRN (12:07)
[2017-09-11 12:11] VITALS: BP 158/70
[2017-09-11] MEDS ORDERED: Sodium Chloride 0.9% 1,000 ML IV SCH (12:15)
[2017-09-11] MEDS ORDERED: Naloxone 2 MG/2 ML Syringe ONE (13:08)
--- NOTE | 2017-09-11 14:54 | EDM.PDOC ---
ED HPI GENERAL MEDICAL PROBLEM - General Chief Complaint: Drug or Alcohol Abuse Stated Complaint: [facility] Time Seen by Provider: 09/11/17 12:08 Source of Information: Reports: Patient, EMS, Police History Limitations: Reports: No Limitations - History of Present Illness INITIAL COMMENTS - FREE TEXT/NARRATIVE: The patient overdosed on heroin today. He injected and his mother found him. Police gave him 4mg of nitro intranasal and that did help but he was still sleepy so EMS started an IV and gave him 2mg IV. He is alert and talking. He was here last month for an overdose. He admits to using and he has no intentions of stopping. He did not take anything else and he did not consume alcohol. Onset: Sudden Duration: Minutes: Severity: Severe Improves with: Reports: None Worsens with: Reports: None Associated Symptoms: Reports: No Other Symptoms - Related Data Allergies Allergy/AdvReac Type Severity Reaction Status Date / Time No Known Allergies Allergy Verified 09/11/17 12:06 Home Meds: Home Meds . [No Known Home Meds] 09/11/17 [History] Past Medical History Respiratory History: Reports: Asthma Psychiatric History: Reports: Addiction - Infectious Disease History Infectious Disease History: Reports: Hepatitis C - Past Surgical History HEENT Surgical History: Reports: Oral Surgery Social & Family History - Tobacco Use Smoking Status *Q: Current Every Day Smoker Years of Tobacco use: 15 Packs/Tins Daily: 1 - Caffeine Use Caffeine Use: Reports: Coffee, Soda - Alcohol Use Days Per Week of Alcohol Use: 7 Number of Drinks Per Day: 5 Total Drinks Per Week: 35 - Recreational Drug Use Recreational Drug Use: Yes Drug Use in Last 12 Months: Yes Recreational Drug Type: Reports: Heroin Recreational Drug Use Frequency: Daily - Living Situation & Occupation Living situation: Reports: Single, with Family (Mother) Occupation: Unemployed ED ROS GENERAL - Review of Systems Review Of Systems: See Below Constitutional: Reports: No Symptoms HEENT: Reports: No Symptoms Respiratory: Reports: No Symptoms Cardiovascular: Reports: No Symptoms Endocrine: Reports: No Symptoms GI/Abdominal: Reports: No Symptoms : Reports: No Symptoms Musculoskeletal: Reports: No Symptoms - Physical Exam Exam: See Below Exam Limited By: No Limitations General Appearance: Alert, No Apparent Distress Ears: Normal External Exam Nose: Normal Inspection Head Exam: Atraumatic, Normocephalic Neck: Normal Inspection Respiratory/Chest: No Respiratory Distress, Lungs Clear, Normal Breath Sounds Cardiovascular: Regular Rate, Rhythm, No Edema, No Murmur GI/Abdominal: Soft, Non-Tender, No Organomegaly, No Mass Neuro Exam (Abbreviated): Alert, Oriented, No Motor/Sensory Deficits Extremities: Other (Erythema to a vein in the right forearm) Course - Vital Signs Last Recorded V/S: Last Vital Signs Temp 97.1 F 09/11/17 12:06 Pulse 125 H 09/11/17 12:06 Resp 21 H 09/11/17 12:06 BP 158/70 H 09/11/17 12:06 Pulse Ox 100 09/11/17 12:06 - Orders/Labs/Meds Orders: Active Orders 24 hr Category Date Time Status Cardiac Monitoring [RC] . DIRECTED Care 09/11/17 12:07 Active Oxygen Therapy [RC] PRN Care 09/11/17 12:07 Active Peripheral IV Care [RC] . DIRECTED Care 09/11/17 12:08 Active Sodium Chloride 0.9% [Normal Saline] 1,000 ml Med 09/11/17 12:15 Active IV ASDIRECTED Sodium Chloride 0.9% [Saline Flush] Med 09/11/17 12:07 Active 10 ml FLUSH ASDIRECTED PRN Peripheral IV Insertion Adult [OM.PC] Stat Oth 09/11/17 12:07 Ordered Medication Orders Sodium Chloride (Normal Saline) 1,000 mls @ 125 mls/hr IV ASDIRECTED MELISA Last Admin: 09/11/17 12:17 Dose: 125 mls/hr Sodium Chloride (Saline Flush) 10 ml FLUSH ASDIRECTED PRN PRN Reason: Keep Vein Open Last Admin: 09/11/17 12:17 Dose: 10 ml Labs: Laboratory Tests 09/11/17 09/11/17 Range/Units 12:25 12:25 WBC 5.86 (4.23-9.07) K/mm3 RBC 4.50 L (4.63-6.08) M/mm3 Hgb 14.1 (13.7-17.5) gm/L Hct 41.1 (40.1-51.0) % MCV 91.3 (79.0-92.2) fl MCH 31.3 (25.7-32.2) pg MCHC 34.3 (32.2-35.5) g/dl RDW Std Deviation 41.9 (35.1-43.9) fL Plt Count 164 (163-337) K/mm3 MPV 11.2 (9.4-12.3) fl Neut % (Auto) 76.5 H (34.0-67.9) % Lymph % (Auto) 15.5 L (21.8-53.1) % Sebastian % (Auto) 6.1 (5.3-12.2) % Eos % (Auto) 1.5 (0.8-7.0) Baso % (Auto) 0.2 (0.1-1.2) % Neut # (Auto) 4.48 (1.78-5.38) K/mm3 Lymph # (Auto) 0.91 L (1.32-3.57) K/mm3 Sebastian # (Auto) 0.36 (0.30-0.82) K/mm3 Eos # (Auto) 0.09 (0.04-0.54) K/mm3 Baso # (Auto) 0.01 (0.01-0.08) K/mm3 Sodium 139 (136-145) mEq/L Potassium 4.1 (3.5-5.1) mEq/L Chloride 101 (98-107) mEq/L Carbon Dioxide 28 (21-32) mEq/L Anion Gap 14.1 (5-15) BUN 18 (7-18) mg/dL Creatinine 1.4 H (0.7-1.3) mg/dL Est Cr Clr Drug Dosing 78.94 mL/min Estimated GFR (MDRD) 59 (>60) mL/min BUN/Creatinine Ratio 12.9 L (14-18) Glucose 230 H (74-106) mg/dL Calcium 8.5 (8.5-10.1) mg/dL Total Bilirubin 0.7 (0.2-1.0) mg/dL AST 48 H (15-37) U/L ALT 37 (16-63) U/L Alkaline Phosphatase 62 (46-116) U/L Total Protein 6.9 (6.4-8.2) g/dl Albumin 3.6 (3.4-5.0) g/dl Globulin 3.3 gm/dL Albumin/Globulin Ratio 1.1 (1-2) Ethyl Alcohol 0.00 (0.00) gm% Meds: Medications Generic Name Dose Route Start Last Admin Trade Name Ankush PRN Reason Stop Dose Admin Sodium Chloride 1,000 mls @ 125 mls/hr 09/11/17 12:15 09/11/17 12:17 Normal Saline IV 125 mls/hr ASDIRECTED MELISA Administration Sodium Chloride 10 ml 09/11/17 12:07 09/11/17 12:17 Saline Flush FLUSH 10 ml ASDIRECTED PRN Administration Keep Vein Open Discontinued Medications Generic Name Dose Route Start Last Admin Trade Name Freq PRN Reason Stop Dose Admin Naloxone HCl 1 mg 09/11/17 13:00 09/11/17 13:05 Narcan IVPUSH 09/11/17 13:01 1 mg ONETIME ONE Administration Naloxone HCl Confirm 09/11/17 13:08 09/11/17 13:09 Narcan Administered 09/11/17 13:09 Not Given Dose 2 mg .ROUTE .STK-MED ONE - Re-Assessments/Exams Free Text/Narrative Re-Assessment/Exam: 09/11/17 14:50 I ordered an IV and labs. At one time his oxygen saturations went down to the upper 80s so I gave him another dose of narcan of 1mg. He is alert now and his mom is here. I asked him if he was going to stop and he said no. He wants to leave AMA right now. Departure - Departure Time of Disposition: 14:55 Disposition: Against Medical Advice 07 Condition: Good Clinical Impression: Drug dependence Drug overdose Qualifiers: Encounter type: initial encounter Injury intent: accidental or unintentional Qualified Code(s): T50.901A - Poisoning by unspecified drugs, medicaments and biological substances, accidental (unintentional), initial encounter Heroin overdose Qualifiers: Encounter type: initial encounter Injury intent: accidental or unintentional Qualified Code(s): T40.1X1A - Poisoning by heroin, accidental (unintentional), initial encounter - Discharge Information Referrals: Nevaeh Humphrey NP [Primary Care Provider] - Additional Instructions: Do not do heroin. You have almost twice. Seek help to stop using. You can call [facility] at [phone]. You are leaving against medical advice. We need to observe you longer. You still could stop breathing and . - My Orders Last 24 Hours: My Active Orders 09/11/17 12:07 Cardiac Monitoring [RC] . DIRECTED Oxygen Therapy [RC] PRN Sodium Chloride 0.9% [Saline Flush] 10 ml FLUSH ASDIRECTED PRN Peripheral IV Insertion Adult [OM.PC] Stat 09/11/17 12:08 Peripheral IV Care [RC] . DIRECTED 09/11/17 12:15 Sodium Chloride 0.9% [Normal Saline] 1,000 ml IV ASDIRECTED - Assessment/Plan Last 24 Hours: My Active Orders 09/11/17 12:07 Cardiac Monitoring [RC] . DIRECTED Oxygen Therapy [RC] PRN Sodium Chloride 0.9% [Saline Flush] 10 ml FLUSH ASDIRECTED PRN Peripheral IV Insertion Adult [OM.PC] Stat 09/11/17 12:08 Peripheral IV Care [RC] . DIRECTED 09/11/17 12:15 Sodium Chloride 0.9% [Normal Saline] 1,000 ml IV ASDIRECTED
== END 2017-09-11 15:05 | disposition left against medical advice (07) ==
LOC: JD.ED 12:01
DX: T40.1X1A Poisoning by heroin, accidental (unintentional), initial encounter (principal); F11.20 Opioid dependence, uncomplicated; F17.210 Nicotine dependence, cigarettes, uncomplicated
CPT/HCPCS: 36415; 80053; 85025; 96361; 96374; 99285; G0480; J2310; J7040; J7050

== ENCOUNTER 2017-11-08 11:29 | Emergency (ER) | payer SELFPAY ==
[2017-11-08 11:41] VITALS: BP 164/100
--- NOTE | 2017-11-08 12:18 | EDM.PDOC ---
ED HPI GENERAL MEDICAL PROBLEM - General Chief Complaint: Drug or Alcohol Abuse Stated Complaint: [facility] Time Seen by Provider: 11/08/17 12:12 - History of Present Illness INITIAL COMMENTS - FREE TEXT/NARRATIVE: 32-year-old well-established drug addict was found unresponsive in a hotel. Police were on the scene fairly quickly administered 12 mg of intranasal Narcan and he woke up. EMS transferred for him to the emergency room. The patient is very concerned about getting out here quickly. He denies any pain he denies any suicidal wishes or ideation he also denies any wishes to give up heroin. Patient does not have chest pain chest pressure breathing difficulty shortness of breath his brain does not feel foggy his ability to think he thinks is normal. - Related Data Allergies Allergy/AdvReac Type Severity Reaction Status Date / Time No Known Allergies Allergy Verified 11/08/17 11:40 Home Meds: Home Meds . [No Known Home Meds] 09/11/17 [History] Past Medical History Respiratory History: Reports: Asthma Psychiatric History: Reports: Addiction - Infectious Disease History Infectious Disease History: Reports: Hepatitis C - Past Surgical History HEENT Surgical History: Reports: Oral Surgery Social & Family History - Tobacco Use Smoking Status *Q: Current Every Day Smoker Years of Tobacco use: 10 Packs/Tins Daily: 0.5 - Caffeine Use Caffeine Use: Reports: Coffee, Energy Drinks - Alcohol Use Days Per Week of Alcohol Use: 7 Number of Drinks Per Day: 5 Total Drinks Per Week: 35 - Recreational Drug Use Recreational Drug Use: Yes Drug Use in Last 12 Months: Yes Recreational Drug Type: Reports: Heroin Recreational Drug Use Frequency: Binges - Living Situation & Occupation Living situation: Reports: Single, with Family (Mother) Occupation: Unemployed ED ROS GENERAL - Review of Systems Review Of Systems: See Below Constitutional: Reports: No Symptoms HEENT: Reports: No Symptoms Respiratory: Reports: No Symptoms Cardiovascular: Reports: No Symptoms Endocrine: Reports: No Symptoms GI/Abdominal: Reports: No Symptoms : Reports: No Symptoms Musculoskeletal: Reports: No Symptoms Skin: Reports: No Symptoms Neurological: Reports: No Symptoms Psychiatric: Reports: No Symptoms ED EXAM, GENERAL - Physical Exam Exam: See Below Exam Limited By: Other (Patient is cooperative vital signs stable blood pressures little high) General Appearance: Alert, No Apparent Distress Eye Exam: Bilateral Eye: PERRL (Pupil slightly pinpoint) Ears: Normal External Exam, Normal Canal, Hearing Grossly Normal, Normal TMs Nose: Normal Inspection, Normal Mucosa, No Blood Throat/Mouth: Normal Inspection, Normal Lips, Normal Oropharynx, Normal Voice, No Airway Compromise Head: Atraumatic, Normocephalic Neck: Normal Inspection, Supple, Non-Tender, Full Range of Motion Respiratory/Chest: No Respiratory Distress, Lungs Clear, Normal Breath Sounds Cardiovascular: Regular Rate, Rhythm, No Edema, No Murmur GI/Abdominal: Normal Bowel Sounds, Soft, Non-Tender Back Exam: Normal Inspection. No: CVA Tenderness (L), CVA Tenderness (R) Psychiatric: Other (Patient adamantly denies any suicidal wishes radiation he also has no wishes to give up heroin.) Skin Exam: Warm, Dry, Intact, Tattoo(s) EKG INTERPRETATION EKG Date: 11/08/17 Rhythm: NSR [place]: Normal P-Wave: Present QRS: Other (Probably normal border left ventricular hypertrophy) ST-T: Other (On specific nondiagnostic changes) QT: Normal Comparison: NA - No Prior EKG EKG Interpretation Comments: Abnormal EKG Course - Vital Signs Last Recorded V/S: Last Vital Signs Temp 36.9 C 11/08/17 11:36 Pulse 79 11/08/17 11:36 Resp 16 11/08/17 11:36 BP 164/100 H 11/08/17 11:36 Pulse Ox 100 11/08/17 11:36 - Orders/Labs/Meds Orders: Active Orders 24 hr Category Date Time Status EKG Documentation Completion [RC] STAT Care 11/08/17 11:52 Active CBC WITH MANUAL DIFF [HEME] Stat Lab 11/08/17 11:54 Results COMPREHENSIVE METABOLIC PN,CMP [CHEM] Stat Lab 11/08/17 11:54 Received DRUG SCREEN, URINE [URCHEM] Stat Lab 11/08/17 12:03 Ordered ETHANOL BLOOD MEDICAL [CHEM] Stat Lab 11/08/17 11:54 Received URINALYSIS W/MICROSCOPIC [UA W/MICROSCOPIC] [URIN] Stat Lab 11/08/17 12:03 Results Labs: Laboratory Tests 11/08/17 11/08/17 11/08/17 Range/Units 11:50 11:54 12:03 WBC 7.74 (4.23-9.07) K/mm3 RBC 4.64 (4.63-6.08) M/mm3 Hgb 14.4 (13.7-17.5) gm/L Hct 42.4 (40.1-51.0) % MCV 91.4 (79.0-92.2) fl MCH 31.0 (25.7-32.2) pg MCHC 34.0 (32.2-35.5) g/dl RDW Std Deviation 44.0 H (35.1-43.9) fL Plt Count 203 (163-337) K/mm3 MPV 10.5 (9.4-12.3) fl Puncture Site Rt radial ABG pH 7.37 (7.35-7.45) ABG pCO2 41.2 (35.0-45.0) mmHg ABG pO2 89.0 (80.0-100.0) mmHg ABG HCO3 23.4 (22.0-26.0) meq/L ABG O2 Saturation 97.9 H (96.0-97.0) % ABG Base Excess -1.2 (-2-2.0) Mynor Test Positive O2 Delivery Device Room air FiO2 21.00 (21.00-100.00) % Urine Color Yellow (Yellow) Urine Appearance Clear (Clear) Urine pH 6.0 (5.0-8.0) Ur Specific [place] > or = 1.030 (1.005-1.030) Urine Protein 1+ H (Negative) Urine Glucose (UA) Negative (Negative) Urine Ketones Negative (Negative) Urine Occult Blood Negative (Negative) Urine Nitrite Negative (Negative) Urine Bilirubin Negative (Negative) Urine Urobilinogen 0.2 (0.2-1.0) Ur Leukocyte Esterase Negative (Negative) - Re-Assessments/Exams Free Text/Narrative Re-Assessment/Exam: 11/08/17 12:18 He is obviously doing better after his 12 mg of of intranasal Narcan he wants to sign the hospital AMA. I was concerned about this on my initial interview patient is not suicidal his blood gases did come back and are surprisingly normal except his carboxyhemoglobin is elevated at 3.9 smoker. Departure - Departure Time of Disposition: 12:23 Disposition: Against Medical Advice 07 Clinical Impression: Accidental heroin overdose - Discharge Information - My Orders Last 24 Hours: My Active Orders 11/08/17 11:52 EKG Documentation Completion [RC] STAT 11/08/17 11:54 CBC WITH MANUAL DIFF [HEME] Stat COMPREHENSIVE METABOLIC PN,CMP [CHEM] Stat ETHANOL BLOOD MEDICAL [CHEM] Stat 11/08/17 12:03 DRUG SCREEN, URINE [URCHEM] Stat URINALYSIS W/MICROSCOPIC [UA W/MICROSCOPIC] [URIN] Stat - Assessment/Plan Last 24 Hours: My Active Orders 11/08/17 11:52 EKG Documentation Completion [RC] STAT 11/08/17 11:54 CBC WITH MANUAL DIFF [HEME] Stat COMPREHENSIVE METABOLIC PN,CMP [CHEM] Stat ETHANOL BLOOD MEDICAL [CHEM] Stat 11/08/17 12:03 DRUG SCREEN, URINE [URCHEM] Stat URINALYSIS W/MICROSCOPIC [UA W/MICROSCOPIC] [URIN] Stat
== END 2017-11-08 12:16 | disposition left against medical advice (07) ==
LOC: JD.ED 11:29
DX: T40.1X1A Poisoning by heroin, accidental (unintentional), initial encounter (principal); F17.210 Nicotine dependence, cigarettes, uncomplicated
CPT/HCPCS: 36415; 36600; 80053; 80306; 81001; 82803; 85025; 93005; 99285; G0480; 93010

== ENCOUNTER 2018-06-26 02:25 | Emergency (ER) | payer SELFPAY ==
[2018-06-26] MEDS ORDERED: Dextrose 5% in Water 1,000 ML ONE (02:40)
[2018-06-26] MEDS ORDERED: Propofol 200 MG/20 ML SDV ONE (02:43)
[2018-06-26] MEDS ORDERED: Propofol 200 MG/20 ML SDV IVPUSH ONE ×2 (02:43→02:45)
--- NOTE | 2018-06-26 02:47 | EDM.PDOC ---
ED HPI GENERAL MEDICAL PROBLEM - General Stated Complaint: RUTHIE MALE Time Seen by Provider: 06/26/18 02:25 Source of Information: Reports: EMS History Limitations: Reports: Altered Mental Status - History of Present Illness INITIAL COMMENTS - FREE TEXT/NARRATIVE: The patient is brought to the ED, initially as a David Gifford, after being found unresponsive at home, purportedly by his girlfriend, although the history is unclear. EMS reports that the police found the patient slumped over in a chair, indoors. The police gave a single 4 mg dose of Narcan intranasally, then EMS gave 1.5 Amps (3 mg), which caused the patient to wake up, however, he has been grunting and is otherwise noncommunicative. EMS states that they did not see any drug or for around the patient, however, it could have been removed by other residents of the house. - Related Data Allergies Allergy/AdvReac Type Severity Reaction Status Date / Time Unable to Assess Allergy Unverified 06/26/18 03:32 Home Meds: Home Meds . [Unable to Verify Home Med List] 06/26/18 [History] ED ROS GENERAL - Review of Systems Review Of Systems: Unable To Obtain - Physical Exam Exam: See Below Exam Limited By: Physical Impairment General Appearance: WD/WN, Moderate Distress, Other (Awake, grunting, shivering) Eye Exam: Bilateral Eye: EOMI, Normal Inspection Ears: Normal External Exam Nose: Normal Inspection, No Blood Throat/Mouth: Normal Inspection, Normal Lips, Normal Teeth, Normal Gums, Normal Oropharynx, Other (tongue and lower lip piercing) Head Exam: Atraumatic, Normocephalic Neck: Normal Inspection, Full Range of Motion Respiratory/Chest: Other (Difficult to assess lung sounds, as the patient is grunting) Cardiovascular: Normal Peripheral Pulses, No Edema, No Gallop, No JVD, No Murmur , No Rub, Tachycardia GI/Abdominal: Normal Bowel Sounds, Soft, Non-Tender, No Organomegaly, No Distention, No Abnormal Bruit, No Mass (Male) Exam: Normal Inspection, Circumcised Rectal (Males) Exam: Deferred Neuro Exam (Abbreviated): Other (Moves all 4 extremities spontaneously) Back Exam: Normal Inspection, Full Range of Motion, NT Extremities: Normal Inspection, Normal Range of Motion, No Pedal Edema, Normal Capillary Refill Psychiatric: Other (Unable to assess) Skin Exam: Cool, Mottled EKG INTERPRETATION EKG Date: 06/26/18 Time: 03:00 Rhythm: A-Fib Rate (Beats/Min): 143 [place]: Normal (Borderline RAD) P-Wave: Absent QRS: Normal ST-T: Elevated (J-point elevation lateral leads - could be rate-limited repolarization abnormality) QT: Prolonged (QTc 495 ms) Comparison: NA - No Prior EKG Course - Vital Signs Last Recorded V/S: Last Vital Signs Temp 33.7 C L 06/26/18 03:32 Pulse 142 H 06/26/18 03:32 Resp 33 H 06/26/18 03:32 BP 115/90 06/26/18 03:32 Pulse Ox 93 L 06/26/18 03:32 - Orders/Labs/Meds Orders: Active Orders 24 hr Category Date Time Status Accu Check [Blood Glucose Check, Bedside] [RC] ONETIME Care 06/26/18 02:30 Active Accu Check [Blood Glucose Check, Bedside] [RC] ONETIME Care 06/26/18 04:47 Active EKG Documentation Completion [RC] STAT Care 06/26/18 02:28 Active Ang Chest [CT] Stat Exams 06/26/18 03:58 Taken Chest 1V Frontal [CR] Stat Exams 06/26/18 02:28 Taken Chest 1V-Tube Placement Chk NC [CR] Stat Exams 06/26/18 03:03 Taken CULTURE BLOOD [BC] Stat Lab 06/26/18 02:55 Received CULTURE BLOOD [BC] Stat Lab 06/26/18 03:10 Received DRUG SCREEN, URINE [URCHEM] Stat Lab 06/26/18 02:36 Ordered Dextrose 5%-0.9% NaCl [Dextrose 5%-Normal Saline] 1,000 Med 06/26/18 03:00 Active ml IV ASDIRECTED Midazolam [Versed 5 MG/ML] 50 mg Med 06/26/18 03:00 Active Sodium Chloride 0.9% [Normal Saline] 40 ml IV TITRATE Norepinephrine [Levophed] 4 mg Med 06/26/18 03:15 Active Dextrose 5% in Water 246 ml IV TITRATE Propofol [Diprivan 100 ML] 100 ml Med 06/26/18 02:45 Active IV TITRATE Blood Culture x2 Reflex Set [OM.PC] Stat Oth 06/26/18 02:28 Ordered Desired Level of Sedation (RASS) [AST] Click To Edit Oth 06/26/18 03:08 Ordered Medication Orders Dextrose/Sodium Chloride (Dextrose 5%-Normal Saline) 1,000 mls @ 150 mls/hr IV ASDIRECTED MELISA Last Admin: 06/26/18 02:41 Dose: 150 mls/hr Midazolam HCl 50 mg/ Sodium (Chloride) 50 mls @ 8 mls/hr IV TITRATE MELISA; Protocol Last Admin: 06/26/18 02:59 Dose: 8 mg/hr, 8 mls/hr Norepinephrine Bitartrate 4 mg (/ Dextrose/Water) 250 mls @ 18.75 mls/hr IV TITRATE MELISA; Protocol Last Admin: 06/26/18 03:18 Dose: 5 mcg/min, 18.75 mls/hr Propofol (Diprivan 100 Ml) 100 mls @ 36 mls/hr IV TITRATE MELISA; Protocol Last Admin: 06/26/18 02:45 Dose: 75 mcg/kg/min, 36 mls/hr Labs: Laboratory Tests 06/26/18 06/26/18 06/26/18 Range/Units 02:28 02:36 02:55 WBC 18.15 H (4.23-9.07) K/mm3 RBC 4.98 (4.63-6.08) M/mm3 Hgb 15.3 (13.7-17.5) gm/L Hct 45.9 (40.1-51.0) % MCV 92.2 (79.0-92.2) fl MCH 30.7 (25.7-32.2) pg MCHC 33.3 (32.2-35.5) g/dl RDW Std Deviation 45.9 H (35.1-43.9) fL Plt Count 230 (163-337) K/mm3 MPV 10.8 (9.4-12.3) fl Neutrophils % (Manual) 79 H (40-60) % Band Neutrophils % 0 (0-10) % Lymphocytes % (Manual) 17 L (20-40) % Atypical Lymphs % 0 % Monocytes % (Manual) 3 (2-10) % Eosinophils % (Manual) 0 L (0.8-7.0) % Basophils % (Manual) 1 (0.2-1.2) Platelet Estimate Adequate Plt Morphology Comment Normal RBC Morph Comment Normal D-Dimer, Quantitative (0.19-0.50) mg/L Puncture Site Rt radial ABG pH 6.99 L* (7.35-7.45) ABG pCO2 75.0 H* (35.0-45.0) mmHg ABG pO2 69.0 L (80.0-100.0) mmHg ABG HCO3 17.3 L (22.0-26.0) meq/L ABG O2 Saturation 87.5 L (96.0-97.0) % ABG Base Excess -16.7 L (-2-2.0) Mynor Test Positive A-a Gradient 478 mmHg O2 Delivery Device Nonrebreather Oxygen Flow Rate 15.0 FiO2 100.00 (21.00-100.00) % Tidal Volume cc PEEP cmH20 Sodium (136-145) mEq/L Potassium (3.5-5.1) mEq/L Chloride (98-107) mEq/L Carbon Dioxide (21-32) mEq/L Anion Gap (5-15) BUN (7-18) mg/dL Creatinine (0.7-1.3) mg/dL Est Cr Clr Drug Dosing Estimated GFR (MDRD) (>60) mL/min BUN/Creatinine Ratio (14-18) Glucose (74-106) mg/dL Lactic Acid (0.4-2.0) mmol/L Calcium (8.5-10.1) mg/dL Magnesium (1.8-2.4) mg/dl Total Bilirubin (0.2-1.0) mg/dL AST (15-37) U/L ALT (16-63) U/L Alkaline Phosphatase (46-116) U/L Troponin I (0.00-0.056) ng/mL Total Protein (6.4-8.2) g/dl Albumin (3.4-5.0) g/dl Globulin gm/dL Albumin/Globulin Ratio (1-2) Urine Opiates Screen Presumptive positive H (NEGATIVE) Ur Buprenorphine Scrn Negative (NEGATIVE) Ur Oxycodone Screen Negative (NEGATIVE) Urine Methadone Screen Negative (NEGATIVE) Ur Propoxyphene Screen Negative (NEGATIVE) Ur Barbiturates Screen Negative (NEGATIVE) Ur Tricyclics Screen Negative (NEGATIVE) Ur Phencyclidine Scrn Negative (NEGATIVE) Ur Amphetamine Screen Presumptive positive H (NEGATIVE) U Methamphetamines Scrn Negative (NEGATIVE) U Benzodiazepines Scrn Presumptive positive H (NEGATIVE) U Cocaine Metab Screen Negative (NEGATIVE) U Marijuana (THC) Screen Presumptive positive H (NEGATIVE) Ethyl Alcohol (0.00) gm% 06/26/18 06/26/18 06/26/18 Range/Units 02:55 02:55 03:10 WBC (4.23-9.07) K/mm3 RBC (4.63-6.08) M/mm3 Hgb (13.7-17.5) gm/L Hct (40.1-51.0) % MCV (79.0-92.2) fl MCH (25.7-32.2) pg MCHC (32.2-35.5) g/dl RDW Std Deviation (35.1-43.9) fL Plt Count (163-337) K/mm3 MPV (9.4-12.3) fl Neutrophils % (Manual) (40-60) % Band Neutrophils % (0-10) % Lymphocytes % (Manual) (20-40) % Atypical Lymphs % % Monocytes % (Manual) (2-10) % Eosinophils % (Manual) (0.8-7.0) % Basophils % (Manual) (0.2-1.2) Platelet Estimate Plt Morphology Comment RBC Morph Comment D-Dimer, Quantitative 10.87 H (0.19-0.50) mg/L Puncture Site ABG pH (7.35-7.45) ABG pCO2 (35.0-45.0) mmHg ABG pO2 (80.0-100.0) mmHg ABG HCO3 (22.0-26.0) meq/L ABG O2 Saturation (96.0-97.0) % ABG Base Excess (-2-2.0) Mynor Test A-a Gradient mmHg O2 Delivery Device Oxygen Flow Rate FiO2 (21.00-100.00) % Tidal Volume cc PEEP cmH20 Sodium 142 (136-145) mEq/L Potassium 4.2 (3.5-5.1) mEq/L Chloride 102 (98-107) mEq/L Carbon Dioxide 17 L (21-32) mEq/L Anion Gap 27.2 H (5-15) BUN 30 H (7-18) mg/dL Creatinine 3.3 H (0.7-1.3) mg/dL Est Cr Clr Drug Dosing TNP Estimated GFR (MDRD) 22 (>60) mL/min BUN/Creatinine Ratio 9.1 L (14-18) Glucose 75 (74-106) mg/dL Lactic Acid 8.5 H (0.4-2.0) mmol/L Calcium 8.6 (8.5-10.1) mg/dL Magnesium 2.8 H (1.8-2.4) mg/dl Total Bilirubin 1.4 H (0.2-1.0) mg/dL AST 605 H (15-37) U/L ALT 493 H (16-63) U/L Alkaline Phosphatase 127 H (46-116) U/L Troponin I 0.139 H* (0.00-0.056) ng/mL Total Protein 7.8 (6.4-8.2) g/dl Albumin 3.9 (3.4-5.0) g/dl Globulin 3.9 gm/dL Albumin/Globulin Ratio 1.0 (1-2) Urine Opiates Screen (NEGATIVE) Ur Buprenorphine Scrn (NEGATIVE) Ur Oxycodone Screen (NEGATIVE) Urine Methadone Screen (NEGATIVE) Ur Propoxyphene Screen (NEGATIVE) Ur Barbiturates Screen (NEGATIVE) Ur Tricyclics Screen (NEGATIVE) Ur Phencyclidine Scrn (NEGATIVE) Ur Amphetamine Screen (NEGATIVE) U Methamphetamines Scrn (NEGATIVE) U Benzodiazepines Scrn (NEGATIVE) U Cocaine Metab Screen (NEGATIVE) U Marijuana (THC) Screen (NEGATIVE) Ethyl Alcohol 0.00 (0.00) gm% 06/26/18 Range/Units 03:45 WBC (4.23-9.07) K/mm3 RBC (4.63-6.08) M/mm3 Hgb (13.7-17.5) gm/L Hct (40.1-51.0) % MCV (79.0-92.2) fl MCH (25.7-32.2) pg MCHC (32.2-35.5) g/dl RDW Std Deviation (35.1-43.9) fL Plt Count (163-337) K/mm3 MPV (9.4-12.3) fl Neutrophils % (Manual) (40-60) % Band Neutrophils % (0-10) % Lymphocytes % (Manual) (20-40) % Atypical Lymphs % % Monocytes % (Manual) (2-10) % Eosinophils % (Manual) (0.8-7.0) % Basophils % (Manual) (0.2-1.2) Platelet Estimate Plt Morphology Comment RBC Morph Comment D-Dimer, Quantitative (0.19-0.50) mg/L Puncture Site Rt radial ABG pH 7.20 L (7.35-7.45) ABG pCO2 46.1 H (35.0-45.0) mmHg ABG pO2 65.0 L (80.0-100.0) mmHg ABG HCO3 17.5 L (22.0-26.0) meq/L ABG O2 Saturation 90.7 L (96.0-97.0) % ABG Base Excess -10.2 L (-2-2.0) Mynor Test Positive A-a Gradient 102 mmHg O2 Delivery Device Ventilator Oxygen Flow Rate 0.0 FiO2 35.00 (21.00-100.00) % Tidal Volume 450.0 cc PEEP 5.0 cmH20 Sodium (136-145) mEq/L Potassium (3.5-5.1) mEq/L Chloride (98-107) mEq/L Carbon Dioxide (21-32) mEq/L Anion Gap (5-15) BUN (7-18) mg/dL Creatinine (0.7-1.3) mg/dL Est Cr Clr Drug Dosing Estimated GFR (MDRD) (>60) mL/min BUN/Creatinine Ratio (14-18) Glucose (74-106) mg/dL Lactic Acid (0.4-2.0) mmol/L Calcium (8.5-10.1) mg/dL Magnesium (1.8-2.4) mg/dl Total Bilirubin (0.2-1.0) mg/dL AST (15-37) U/L ALT (16-63) U/L Alkaline Phosphatase (46-116) U/L Troponin I (0.00-0.056) ng/mL Total Protein (6.4-8.2) g/dl Albumin (3.4-5.0) g/dl Globulin gm/dL Albumin/Globulin Ratio (1-2) Urine Opiates Screen (NEGATIVE) Ur Buprenorphine Scrn (NEGATIVE) Ur Oxycodone Screen (NEGATIVE) Urine Methadone Screen (NEGATIVE) Ur Propoxyphene Screen (NEGATIVE) Ur Barbiturates Screen (NEGATIVE) Ur Tricyclics Screen (NEGATIVE) Ur Phencyclidine Scrn (NEGATIVE) Ur Amphetamine Screen (NEGATIVE) U Methamphetamines Scrn (NEGATIVE) U Benzodiazepines Scrn (NEGATIVE) U Cocaine Metab Screen (NEGATIVE) U Marijuana (THC) Screen (NEGATIVE) Ethyl Alcohol (0.00) gm% Meds: Medications Generic Name Dose Route Start Last Admin Trade Name Freq PRN Reason Stop Dose Admin Dextrose/Sodium Chloride 1,000 mls @ 150 mls/hr 06/26/18 03:00 06/26/18 02:41 Dextrose 5%-Normal Saline IV 150 mls/hr ASDIRECTED MELISA Administration Midazolam HCl 50 mg/ Sodium 50 mls @ 8 mls/hr 06/26/18 03:00 06/26/18 02:59 Chloride IV 8 mg/hr TITRATE MELISA 8 mls/hr Administration Protocol 8 MG/HR Norepinephrine Bitartrate 4 mg 250 mls @ 18.75 mls/hr 06/26/18 03:15 03:18 / Dextrose/Water IV 5 mcg/min TITRATE MELISA 18.75 mls/hr Administration Protocol 5 MCG/MIN Propofol 100 mls @ 36 mls/hr 06/26/18 02:45 06/26/18 02:45 Diprivan 100 Ml IV 75 mcg/kg/min TITRATE MELISA 36 mls/hr Administration Protocol 75 MCG/KG/MIN Discontinued Medications Generic Name Dose Route Start Last Admin Trade Name Ankush PRN Reason Stop Dose Admin Enoxaparin Sodium 80 mg 06/26/18 04:02 06/26/18 04:34 Lovenox SUBCUT 06/26/18 04:03 80 mg ONETIME ONE Administration Ampicillin Sodium/Sulbactam 100 mls @ 200 mls/hr 06/26/18 03:41 06/26/18 04: 45 Sodium 3 gm/ Sodium Chloride IV 06/26/18 04:10 200 mls/hr ONETIME ONE Administration Sodium Chloride 100 mls @ 4 mls/sec 06/26/18 04:07 06/26/18 04:31 Normal Saline IV 06/26/18 04:08 4 mls/sec ONETIME ONE Administration Iopamidol 100 ml 06/26/18 04:07 06/26/18 04:31 Isovue-370 (76%) IVPUSH 06/26/18 04:08 100 ml ONETIME ONE Administration Midazolam HCl 5 mg 06/26/18 02:55 06/26/18 04:16 Versed 1 Mg/Ml IVPUSH 06/26/18 02:56 5 mg ONETIME ONE Administration Propofol 50 mg 06/26/18 02:43 06/26/18 02:43 Diprivan 20 Ml IVPUSH 06/26/18 02:44 50 mg ONETIME ONE Administration Propofol 50 mg 06/26/18 02:45 06/26/18 02:45 Diprivan 20 Ml IVPUSH 06/26/18 02:46 50 mg ONETIME ONE Administration - Re-Assessments/Exams Free Text/Narrative Re-Assessment/Exam: 06/26/18 02:53 The patient's ABG returned demonstrating a combined respiratory acidosis and metabolic acidosis, along with hypoxemia. Emergent endotracheal intubation was indicated. Rectal temperature was found to be 92.6. A bear hugger was placed. The patient was sedated with IV propofol. An 8.0 ETT was placed to 25 cm at the incisors using a Mac 3 laryngoscope, without difficulty. Initial propofol drip was set at 75 mcg/kg/m, increased to 100 mcg/kg/m, however , not only did this inadequately sedate the patient, but his blood pressure dropped into the 70s as well, therefore a Versed drip was ordered, and the propofol has been discontinued. Accu-Chek returned as 62. D5 NS was initially ordered at 150 mL per hour, however, the patient has received a bolus due to low blood pressure. Pre-intubation portable chest radiograph appears to demonstrate a cardiac silhouette within normal limits. No pulmonary vascular congestion. No pleural effusions. There appear to be bilateral lower lobe hazy infiltrates, consistent with aspiration. No pneumothorax. Formal read per the Radiologist pending. Post-intubation portable chest radiograph also appears to demonstrate a cardiac silhouette within normal limits. No pulmonary vascular congestion. No pleural effusions. There appear to be bilateral lower lobe hazy infiltrates, consistent with aspiration. No pneumothorax. The tip of the ET tube is about 2.5 cm above the carlo. There is an OG tube to the stomach via the esophagus. Formal read per the Radiologist pending. 06/26/18 03:08 Despite discontinuing the propofol, the patient's blood pressure has persisted and the 70s. I have ordered Levophed to start at 5 mcg/m. 06/26/18 03:24 The patient's ECG indicates that he is in atrial fibrillation with rapid ventricular response. Because of his hypotension, I am not going to start a rate -limiting agent at this time. 06/26/18 03:41 I have ordered Unasyn 3 g for empiric treatment of presumptive aspiration pneumonia. 2 sets of blood cultures were obtained earlier. 06/26/18 03:59 The patient's repeat ABG shows significant improvement, although still with some respiratory and metabolic acidosis. The patient is overbreathing the vent, therefore I will not make any changes. The patient's D-dimer has returned substantially elevated at 10.87, and his troponin elevated at 0.139. His chemistry panel shows an anion gap metabolic acidosis, with a bicarbonate of 17 and an anion gap of 27.2. His BUN/Cr are elevated at 30/3.3. Although both his elevated D-dimer and troponin may be due to his renal insufficiency, given his respiratory failure, I have ordered a CT angiogram of the chest to evaluate for a PE, and will order empiric Lovenox at this time. The patient's lactic acid level is substantially elevated at 8.5, and his LFTs are elevated, as well. I suspect that these are due to systemic hypoxemia, likely because of hypoventilation due to opioid overdose. 06/26/18 04:47 CT angiogram of the chest is read by [facility] as: Large amount of airspace disease. Is a patchy process but becomes fairly confluent in the posterior basal segments and posterior aspects of the lower lobes in general. It has a bronchovascular bundle distribution. Nonspecific. The dependent distribution favors a large aspiration event with aspiration pneumonitis. Atypical infection also on the differential diagnosis. 06/26/18 04:50 Repeat Accu-Chek is 84. 06/26/18 05:13 Case discussed with Clem at [facility] at 04:51. Their ICU is full, therefore they cannot accept the patient. Reviewing the patient's monitor, it appears the patient has spontaneously converted to a normal sinus rhythm. Case then discussed with Hamzah at [facility] at 05:00. Case then discussed with Dr. Soto, cook fishing vessel at [facility], at 05:07. He accepted the patient for transfer to their ICU. We will transfer the patient by ground ambulance. Portable chest radiograph and CT angiogram images pushed to [facility] at 05:13. 06/26/18 05:36 The patient's most recent temperature is normal. Departure - Departure Time of Disposition: 05:15 Disposition: DC/Tfer to Acute Hospital 02 Condition: Serious Clinical Impression: Aspiration pneumonia, Hypercapnic respiratory failure, Sepsis, Lactic acidosis , Hypotension, Elevated troponin, Atrial fibrillation with rapid ventricular response, Heroin overdose, Polysubstance abuse, Hypothermia - Discharge Information *PRESCRIPTION DRUG MONITORING PROGRAM REVIEWED*: Not Applicable *COPY OF PRESCRIPTION DRUG MONITORING REPORT IN PATIENT MAITE: Not Applicable Referrals: PCP,Unknown [Primary Care Provider] - - My Orders Last 24 Hours: My Active Orders 06/26/18 02:28 EKG Documentation Completion [RC] STAT Chest 1V Frontal [CR] Stat Blood Culture x2 Reflex Set [OM.PC] Stat 06/26/18 02:30 Accu Check [Blood Glucose Check, Bedside] [RC] ONETIME 06/26/18 02:36 DRUG SCREEN, URINE [URCHEM] Stat 06/26/18 02:45 Propofol [Diprivan 100 ML] 100 ml IV TITRATE 06/26/18 02:55 CULTURE BLOOD [BC] Stat 06/26/18 03:00 Dextrose 5%-0.9% NaCl [Dextrose 5%-Normal Saline] 1,000 ml IV ASDIRECTED Midazolam [Versed 5 MG/ML] 50 mg Sodium Chloride 0.9% [Normal Saline] 40 ml IV TITRATE 06/26/18 03:03 Chest 1V-Tube Placement Chk NC [CR] Stat 06/26/18 03:08 Desired Level of Sedation (RASS) [AST] Click To Edit 06/26/18 03:10 CULTURE BLOOD [BC] Stat 06/26/18 03:15 Norepinephrine [Levophed] 4 mg Dextrose 5% in Water 246 ml IV TITRATE 06/26/18 03:58 Ang Chest [CT] Stat 06/26/18 04:47 Accu Check [Blood Glucose Check, Bedside] [RC] ONETIME - Assessment/Plan Last 24 Hours: My Active Orders 06/26/18 02:28 EKG Documentation Completion [RC] STAT Chest 1V Frontal [CR] Stat Blood Culture x2 Reflex Set [OM.PC] Stat 06/26/18 02:30 Accu Check [Blood Glucose Check, Bedside] [RC] ONETIME 06/26/18 02:36 DRUG SCREEN, URINE [URCHEM] Stat 06/26/18 02:45 Propofol [Diprivan 100 ML] 100 ml IV TITRATE 06/26/18 02:55 CULTURE BLOOD [BC] Stat 06/26/18 03:00 Dextrose 5%-0.9% NaCl [Dextrose 5%-Normal Saline] 1,000 ml IV ASDIRECTED Midazolam [Versed 5 MG/ML] 50 mg Sodium Chloride 0.9% [Normal Saline] 40 ml IV TITRATE 06/26/18 03:03 Chest 1V-Tube Placement Chk NC [CR] Stat 06/26/18 03:08 Desired Level of Sedation (RASS) [AST] Click To Edit 06/26/18 03:10 CULTURE BLOOD [BC] Stat 06/26/18 03:15 Norepinephrine [Levophed] 4 mg Dextrose 5% in Water 246 ml IV TITRATE 06/26/18 03:58 Ang Chest [CT] Stat 06/26/18 04:47 Accu Check [Blood Glucose Check, Bedside] [RC] ONETIME ED ET INTUBATION - Endotracheal Intubation Time of Intubation: 02:45 ET Intubation Indication: Respiratory Failure Preparation: Suction, Balloon Tested, BVM Set Up, Difficult Airway Equip Pre-oxygenation: assisted with BVM, 100% FiO2, spontaneous breathing Paralysis: propofol (diprivan) Placement: Orotracheal, Cuffed, Uncomplicated Placement ETT Size In mm: 8.0 Number of Attempts: 1 Post intubation tube placement confirmed by: capnometry, CO2 change, tube fog, chest rise, bilateral breath sounds, CXR Tube Secured By: By RT (25 cm at the incisors)
[2018-06-26] MEDS ORDERED: Midazolam 5 MG/ML 5 ML MDV ONE (02:55)
[2018-06-26] MEDS ORDERED: Sodium Chloride 0.9% 100 ML ONE (02:55)
[2018-06-26] MEDS ORDERED: Midazolam 1 MG/ML 5 ML SDV IVPUSH ONE (02:55)
[2018-06-26] MEDS ORDERED: Dextrose 5%-0.9% NaCl 1,000 ML IV SCH (03:00)
[2018-06-26] MEDS ORDERED: Midazolam 50 MG in Sodium Chloride 0.9% 40 ML IV SCH (03:00)
[2018-06-26] MEDS ORDERED: Norepinephrine 4 MG in Dextrose 5% in Water 246 ML IV SCH ×2 (03:15)
[2018-06-26 03:41] VITALS: BP 115/90
[2018-06-26] MEDS ORDERED: Ampicillin/Sulbactam Na 3 GM in Sodium Chloride 0.9% 100 ML IV ONE (03:41)
[2018-06-26] MEDS ORDERED: Enoxaparin 80 MG/0.8 ML Syringe SUBCUT ONE (04:02)
[2018-06-26] MEDS ORDERED: Iopamidol 755 Mg/ML 100 ML Bottle IVPUSH ONE (04:07)
[2018-06-26] MEDS ORDERED: Sodium Chloride 0.9% 100 ML IV ONE (04:07)
--- NOTE | 2018-06-29 07:30 | CT ---
CT chest Technique: Multiple axial sections were obtained from above the lung apices inferiorly through the lung bases. Intravenous contrast was utilized. Study has been performed as a pulmonary angiogram protocol. Comparison: Prior chest x-ray performed earlier on the same day (2:58 AM). Findings: Endotracheal tube is seen. Tip lies slightly above the carlo in satisfactory position. Nasogastric tube is seen with tip lying within the stomach. Pulmonary arteries are well opacified. No filling defects are seen to indicate pulmonary embolism. Mediastinum and hilar regions show no adenopathy or mass. No pericardial thickening is seen. Small portion of the visualized upper abdominal structures show a nonobstructing stone within the left kidney measuring approximately 7.6 mm. Diffuse parenchymal densities are seen within both lower lungs as well as lesser parenchymal change within the upper lungs as well as right middle lobe. Bone window settings were reviewed which appear within normal limits for the patient's age. Impression: 1. Diffuse parenchymal densities within both lungs worse within both lung bases. Differential includes aspiration pneumonia, diffuse non-aspiration pneumonia as well as atypical infection. 2. Satisfactory position of endotracheal tube and nasogastric tube. 3. Other incidental findings as noted above. Diagnostic code #5 I agree with preliminary report from [facility], finalized at 06/26/18, 5:44 AM Central Time
--- NOTE | 2018-06-29 08:37 | CR ---
Chest: Frontal view of the chest was obtained. Comparison: No prior chest x-ray. Increased parenchymal density is seen within both lungs as well as mild interstitial change throughout both lungs. Heart size and mediastinum are normal. Bony structures are unremarkable. Impression: 1. Mild increased density within both sides of chest as noted above. Diagnostic code #3
--- NOTE | 2018-06-29 08:37 | CR ---
Chest: Portable view of the chest was obtained. Comparison: Prior chest x-ray performed earlier on the same day (2:27 AM). Endotracheal tube is seen. Tip lies slightly below the inferior level of the clavicles in satisfactory position. Nasogastric tube is seen with tip coursing off the edge of the film into the stomach. Increasing parenchymal densities are seen within both lung bases. Mild perihilar interstitial change is seen. Bony structures are grossly intact. Impression: 1. Increasing parenchymal densities from prior chest x-ray. 2. Satisfactory position of endotracheal tube and nasogastric tube. Diagnostic code #3
== END 2018-06-26 06:14 ==
LOC: EDBD 02:25 → JD.ED 02:25 → MERGE 02:25 → JD.ED 06:14
DX: A41.9 Sepsis, unspecified organism (principal); R65.20 Severe sepsis without septic shock; J96.02 Acute respiratory failure with hypercapnia; T40.1X1A Poisoning by heroin, accidental (unintentional), initial encounter; T68.XXXA Hypothermia, initial encounter; J69.0 Pneumonitis due to inhalation of food and vomit; E87.2 Acidosis; I95.9 Hypotension, unspecified; I48.91 Unspecified atrial fibrillation; F15.10 Other stimulant abuse, uncomplicated
CPT/HCPCS: 31500; 36415; 36600; 51702; 71045; 71275; 80053; 80306; 82803; 82962; 83605; 83735; 84484; 85007; 85027; 85379; 87040; 93005; 96365; 96366; 96372; 96375; 96376; 99291; 99292; G0480; J0295; J1650; J2250; J2704; J7030; J7042; J7050; J7060; Q9967; 93010; 99285-25

== ENCOUNTER 2019-03-26 20:19 | Emergency (ER) | payer MEDICAID ==
[2019-03-26 20:37] VITALS: BP 128/97
[2019-03-26] MEDS ORDERED: Haloperidol Lactate 5 MG/ML SDV IM ONE (21:48)
[2019-03-26] MEDS ORDERED: LORazepam 2 MG/ML SDV IVPUSH ONE (21:49)
--- NOTE | 2019-03-26 22:02 | EDM.PDOC ---
ED HPI GENERAL MEDICAL PROBLEM - General Chief Complaint: Chest Pain Stated Complaint: [facility] Time Seen by Provider: 03/26/19 21:10 Source of Information: Reports: Patient, EMS History Limitations: Reports: No Limitations - History of Present Illness INITIAL COMMENTS - FREE TEXT/NARRATIVE: 33 y/o male presents to ER with cc chest pain. He reports the pain started about 4 hours ago. He states the pain is on the left side of his chest. he describes the pain as a stabbing pain. It does not radiate or move. He denies SOB, nausea, vomiting, back pain or jaw pain. He has no fever or chills. He admits to using heroin last 2 weeks ago. He was incarcerated earlier today, he states he was sitting on bunk when started. He is accompanied by law officer. He has a history of substance abuse. He stats he has a history of cardiac issues but doesn't take any medications. He does not appear to be in any distress at this time. He is hyperactive and is hyperventilating during examination. Onset: Today Onset Date: 03/26/19 Onset Time: 17:00 Duration: Getting Worse, Intermittent Location: Reports: Chest Quality: Reports: Ache, Stabbing Severity: Mild Improves with: Reports: None Worsens with: Reports: None Associated Symptoms: Reports: Chest Pain. Denies: Cough, Diaphoresis, Nausea/ Vomiting, Shortness of Breath, Syncope, Weakness Left Upper Chest Pain Score (Numeric/FACES): 8 - Related Data Allergies Allergy/AdvReac Type Severity Reaction Status Date / Time No Known Allergies Allergy Verified 03/26/19 20:24 Home Meds: Home Meds . [No Known Home Meds] 09/11/17 [History] Past Medical History Cardiovascular History: Reports: Cardiomyopathy Respiratory History: Reports: Asthma Psychiatric History: Reports: Addiction - Infectious Disease History Infectious Disease History: Reports: Hepatitis C - Past Surgical History HEENT Surgical History: Reports: Oral Surgery Social & Family History - Tobacco Use Smoking Status *Q: Current Every Day Smoker Years of Tobacco use: 19 Packs/Tins Daily: 1 - Caffeine Use Caffeine Use: Reports: Coffee, Energy Drinks - Alcohol Use Days Per Week of Alcohol Use: 5 Number of Drinks Per Day: 10 Total Drinks Per Week: 50 - Recreational Drug Use Recreational Drug Use: Yes Drug Use in Last 12 Months: Yes Recreational Drug Type: Reports: Heroin - Living Situation & Occupation Living situation: Reports: with Family, Single Occupation: Unemployed ED ROS GENERAL - Review of Systems Review Of Systems: See Below Constitutional: Denies: Fever, Chills HEENT: Reports: No Symptoms Respiratory: Denies: Shortness of Breath Cardiovascular: Reports: Chest Pain Endocrine: Reports: No Symptoms GI/Abdominal: Reports: No Symptoms : Reports: No Symptoms Musculoskeletal: Denies: Neck Pain, Back Pain Skin: Reports: No Symptoms Neurological: Reports: No Symptoms Psychiatric: Reports: Agitation, Anxiety Hematologic/Lymphatic: Reports: No Symptoms Immunologic: Reports: No Symptoms ED EXAM, GENERAL - Physical Exam Exam: See Below General Appearance: Alert, WD/WN, No Apparent Distress Neck: Normal Inspection, Supple, Non-Tender, Full Range of Motion Respiratory/Chest: No Respiratory Distress, Lungs Clear, Normal Breath Sounds, No Accessory Muscle Use Cardiovascular: Normal Peripheral Pulses, Regular Rate, Rhythm, No Edema, No Gallop, No JVD, No Murmur, No Rub GI/Abdominal: Normal Bowel Sounds, Soft, Non-Tender, No Organomegaly, No Distention, No Abnormal Bruit, No Mass, Pelvis Stable Back Exam: Normal Inspection, Full Range of Motion Extremities: Normal Inspection, Normal Range of Motion, Non-Tender, No Pedal Edema, Normal Capillary Refill Neurological: Alert, Oriented, CN II-XII Intact, Normal Cognition, Normal Gait Psychiatric: Anxious Skin Exam: Warm, Dry, Intact, Normal Color, No Rash Lymphatic: No Adenopathy EKG INTERPRETATION EKG Date: 03/26/19 Time: 20:31 Rhythm: NSR Rate (Beats/Min): 90 Course - Vital Signs Last Recorded V/S: Last Vital Signs Temp 97.8 F 03/26/19 20:24 Pulse 96 03/26/19 20:24 Resp 42 H 03/26/19 20:24 BP 128/97 H 03/26/19 20:24 Pulse Ox 99 03/26/19 20:24 - Orders/Labs/Meds Orders: Active Orders 24 hr Category Date Time Status EKG Documentation Completion [RC] STAT Care 03/26/19 20:39 Active Chest 2V [CR] Stat Exams 03/26/19 20:39 Taken Labs: Laboratory Tests 03/26/19 03/26/19 03/26/19 Range/Units 20:42 20:42 20:45 WBC 9.89 H (4.23-9.07) K/mm3 RBC 4.41 L (4.63-6.08) M/mm3 Hgb 13.5 L D (13.7-17.5) gm/L Hct 39.0 L (40.1-51.0) % MCV 88.4 D (79.0-92.2) fl MCH 30.6 (25.7-32.2) pg MCHC 34.6 (32.2-35.5) g/dl RDW Std Deviation 43.2 (35.1-43.9) fL Plt Count 257 (163-337) K/mm3 MPV 10.1 (9.4-12.3) fl Neut % (Auto) 67.8 (34.0-67.9) % Lymph % (Auto) 23.4 (21.8-53.1) % Carbon % (Auto) 7.4 (5.3-12.2) % Eos % (Auto) 1.2 (0.8-7.0) Baso % (Auto) 0.1 (0.1-1.2) % Neut # (Auto) 6.71 H (1.78-5.38) K/mm3 Lymph # (Auto) 2.31 (1.32-3.57) K/mm3 Carbon # (Auto) 0.73 (0.30-0.82) K/mm3 Eos # (Auto) 0.12 (0.04-0.54) K/mm3 Baso # (Auto) 0.01 (0.01-0.08) K/mm3 Sodium 139 (136-145) mEq/L Potassium 3.7 (3.5-5.1) mEq/L Chloride 104 (98-107) mEq/L Carbon Dioxide 22 (21-32) mEq/L Anion Gap 16.7 H (5-15) BUN 23 H (7-18) mg/dL Creatinine 1.0 D (0.7-1.3) mg/dL Est Cr Clr Drug Dosing TNP Estimated GFR (MDRD) > 60 (>60) mL/min BUN/Creatinine Ratio 23.0 H (14-18) Glucose 99 (74-106) mg/dL Calcium 9.3 (8.5-10.1) mg/dL Total Bilirubin 0.5 (0.2-1.0) mg/dL AST 18 (15-37) U/L ALT 25 (16-63) U/L Alkaline Phosphatase 64 (46-116) U/L Troponin I < 0.017 (0.00-0.056) ng/mL Total Protein 7.3 (6.4-8.2) g/dl Albumin 3.7 (3.4-5.0) g/dl Globulin 3.6 gm/dL Albumin/Globulin Ratio 1.0 (1-2) Urine Opiates Screen Negative (EGAHCB=511) Ur Buprenorphine Scrn Negative (CUTOFF=10) Ur Oxycodone Screen Negative (ZKS8QR=236) Urine Methadone Screen Negative (IKE6XB=779) Ur Propoxyphene Screen Negative (UGGBFP=852) Ur Barbiturates Screen Negative (AHWYCX=078) Ur Tricyclics Screen Negative (KUNQZI=468) Ur Phencyclidine Scrn Negative (CUTOFF=25) Ur Amphetamine Screen Presumptive positive H (PYHCRN=357) U Methamphetamines Scrn Presumptive positive H (NCSJMQ=351) U Benzodiazepines Scrn Negative (GVEIEG=326) U Cocaine Metab Screen Negative (BMUSNC=075) U Marijuana (THC) Screen Negative (CUTOFF=50) 03/26/19 Range/Units 22:30 WBC (4.23-9.07) K/mm3 RBC (4.63-6.08) M/mm3 Hgb (13.7-17.5) gm/L Hct (40.1-51.0) % MCV (79.0-92.2) fl MCH (25.7-32.2) pg MCHC (32.2-35.5) g/dl RDW Std Deviation (35.1-43.9) fL Plt Count (163-337) K/mm3 MPV (9.4-12.3) fl Neut % (Auto) (34.0-67.9) % Lymph % (Auto) (21.8-53.1) % Carbon % (Auto) (5.3-12.2) % Eos % (Auto) (0.8-7.0) Baso % (Auto) (0.1-1.2) % Neut # (Auto) (1.78-5.38) K/mm3 Lymph # (Auto) (1.32-3.57) K/mm3 Carbon # (Auto) (0.30-0.82) K/mm3 Eos # (Auto) (0.04-0.54) K/mm3 Baso # (Auto) (0.01-0.08) K/mm3 Sodium (136-145) mEq/L Potassium (3.5-5.1) mEq/L Chloride (98-107) mEq/L Carbon Dioxide (21-32) mEq/L Anion Gap (5-15) BUN (7-18) mg/dL Creatinine (0.7-1.3) mg/dL Est Cr Clr Drug Dosing Estimated GFR (MDRD) (>60) mL/min BUN/Creatinine Ratio (14-18) Glucose (74-106) mg/dL Calcium (8.5-10.1) mg/dL Total Bilirubin (0.2-1.0) mg/dL AST (15-37) U/L ALT (16-63) U/L Alkaline Phosphatase (46-116) U/L Troponin I < 0.017 (0.00-0.056) ng/mL Total Protein (6.4-8.2) g/dl Albumin (3.4-5.0) g/dl Globulin gm/dL Albumin/Globulin Ratio (1-2) Urine Opiates Screen (ISXSSH=047) Ur Buprenorphine Scrn (CUTOFF=10) Ur Oxycodone Screen (MMH2DZ=834) Urine Methadone Screen (PLE7DO=259) Ur Propoxyphene Screen (MWNDME=373) Ur Barbiturates Screen (IDTJXL=582) Ur Tricyclics Screen (IRUNJY=640) Ur Phencyclidine Scrn (CUTOFF=25) Ur Amphetamine Screen (XCTILH=390) U Methamphetamines Scrn (IWJXPJ=250) U Benzodiazepines Scrn (ODDBJD=950) U Cocaine Metab Screen (QDVQHO=862) U Marijuana (THC) Screen (CUTOFF=50) Meds: Medications Discontinued Medications Generic Name Dose Route Start Last Admin Trade Name Freq PRN Reason Stop Dose Admin Haloperidol Lactate 5 mg 03/26/19 21:48 Haldol IM 03/26/19 21:49 ONETIME ONE Lorazepam 1 mg 03/26/19 21:49 03/26/19 21:59 Ativan IVPUSH 03/26/19 21:50 1 mg ONETIME ONE Administration - Re-Assessments/Exams Free Text/Narrative Re-Assessment/Exam: 03/26/19 22:05 WBC 9.89 RBC 4.41 H & H 13.5/39.0 Na+ 139 K + 3.7 chl 104 co2 22 bun 23 creatine 1.0 troponin 0.017 + amphetamine and + methamphetamines. EKG NSR no ectopy. I will repeat Troponin at 2230, If it is negative I will send back to snf. I will medicate with Ativan 1 mg IVP for agitation. 03/26/19 23:03 repeat troponin is negative at 0.017. He is stable to discharge to snf. I instructed him to follow up with his PCP for further evaluation and treatment of his chest pain. I instructed him to stop using meth and amphetamines. Instructed him to return to the ER for any new or acute worsening symptoms. He verbalized understanding and is stable at time of discharge. Departure - Departure Time of Disposition: 23:05 Disposition: Home, Self-Care 01 Condition: Good Clinical Impression: Atypical chest pain, Polysubstance abuse Instructions: Chest Wall Pain, [id number] Forms: ED Department Discharge Additional Instructions: You have been diagnosis with atypical chest pain. Your labs were unremarkable. Your EKG was normal. You were positive for methamphetamines and amphetamines. I recommend you stop using these drugs. Follow up with your PCP. Return to the ER for any new or acute worsening symptoms. - My Orders Last 24 Hours: My Active Orders 03/26/19 20:39 EKG Documentation Completion [RC] STAT Chest 2V [CR] Stat - Assessment/Plan Last 24 Hours: My Active Orders 03/26/19 20:39 EKG Documentation Completion [RC] STAT Chest 2V [CR] Stat
--- NOTE | 2019-03-30 07:24 | CR ---
Chest: Two views of the chest were obtained. Comparison: Prior chest x-ray of 04/08/[address] of 02/05/17. Heart size and mediastinum are normal. Lungs are clear. Bony structures appear within normal limits for the patient's age. Impression: 1. Nothing acute is seen on two-view chest x-ray. Diagnostic code #1
== END 2019-03-26 23:22 | disposition home or self-care (01) ==
LOC: JD.ED 20:19
DX: R07.89 Other chest pain (principal); F19.10 Other psychoactive substance abuse, uncomplicated; F17.210 Nicotine dependence, cigarettes, uncomplicated
CPT/HCPCS: 36415; 71046; 80053; 80306; 84484; 85025; 93005; 96374; 99285; J2060; 93010

== ENCOUNTER 2021-10-27 05:01 | Emergency (ER) | payer BC, MEDICAID ==
[2021-10-27 05:25] VITALS: BP 141/90; PULSE 87
[2021-10-27] MEDS ORDERED: Ketorolac 15 MG/ML SDV IM ONE (05:35)
--- NOTE | 2021-10-27 05:37 | EDM.PDOC ---
ED HPI GENERAL MEDICAL PROBLEM - General Chief Complaint: Respiratory Problem Stated Complaint: PERSISTANT COUGH FOR PAST COUPLE WEEKS Time Seen by Provider: 10/27/21 05:35 Source of Information: Reports: Patient History Limitations: Reports: No Limitations - History of Present Illness INITIAL COMMENTS - FREE TEXT/NARRATIVE: Patient is a 36-year-old male presenting to the emergency room the chief complaint of cough and sore throat. Duration of symptoms has been 4 to 5 days. Cough is dry nonproductive. Patient reports pain with swallowing. Denies any difficulty breathing, chest pain, nausea, vomiting, diarrhea. Patient has no loss of taste or smell. Patient does report decrease in appetite. Nothing seems to make symptoms better or worse. Patient did take over-the- counter cough medicine last night. Otherwise, has not taken any other medications. No known sick contacts. Patient is not vaccinated against flu or Covid. Treatments SR RISK MANAGEMENT CONSULTANT: Reports: Other (see below) Other Treatments SR RISK MANAGEMENT CONSULTANT: delsym last night at 1900 Chest Pain Score (Numeric/FACES): 5 - Related Data Allergies Allergy/AdvReac Type Severity Reaction Status Date / Time No Known Allergies Allergy Verified 03/26/19 20:24 Home Meds: Home Meds Albuterol [Ventolin HFA] 1 puff INH Q4H PRN 10/27/21 [History] Past Medical History Cardiovascular History: Reports: Cardiomyopathy Respiratory History: Reports: Asthma Psychiatric History: Reports: Addiction - Infectious Disease History Infectious Disease History: Reports: Hepatitis C - Past Surgical History HEENT Surgical History: Reports: Oral Surgery Social & Family History - Tobacco Use Tobacco Use Status *Q: Current Every Day Tobacco User Years of Tobacco use: 20 Packs/Tins Daily: 1 - Caffeine Use Caffeine Use: Reports: Soda - Recreational Drug Use Recreational Drug Use: No - Living Situation & Occupation Living situation: Reports: with Family, Single Occupation: Unemployed ED ROS GENERAL - Review of Systems Review Of Systems: See Below Free Text/Narrative/Comment: In addition to that documented in the HPI above, the additional ROS was obtained: Constitutional: Denies fevers or chills Eyes: Denies vision changes ENMT: Per HPI CV: Denies chest pain Resp: Denies SOB GI: Denies vomiting or diarrhea : Denies painful urination MSK: Denies recent trauma Skin: Denies new rashes Neuro: Denies new numbness or tingling or weakness Endocrine: Denies unexpected weight loss Heme: Denies bleeding disorders ED EXAM, GENERAL - Physical Exam Exam: See Below Free Text/Narrative:: I have reviewed the triage vital signs Const: Well nourished, well developed, appears stated age Eyes: Pupils Equal and reactive to light bilaterally, no conjunctival injection HENT: No signs of trauma or swelling, Neck supple without meningismus. Voice normal. Posterior oropharynx is unremarkable. Uvula midline. CV: Regular Rate Rhythm, Warm, well-perfused extremities RESP: Unlabored respiratory effort GI: soft, non-tender, non-distended, no masses MSK: No gross deformities appreciated Skin: Warm, dry. No rashes Neuro: Alert, transmission maintenance supervisor II-XII grossly intact. Sensation and motor function of extremities grossly intact. Psych: Appropriate mood and affect. Course - Vital Signs Last Recorded V/S: Last Vital Signs Temp 36.4 C 10/27/21 05:19 Pulse 87 10/27/21 05:19 Resp 18 10/27/21 05:19 BP 141/90 H 10/27/21 05:19 Pulse Ox 95 10/27/21 05:19 - Orders/Labs/Meds Labs: Laboratory Tests 10/27/21 Range/Units 05:15 Influenza Type A RNA Negative (NEGATIVE) Influenza Type B RNA Negative (NEGATIVE) SARS-CoV-2 RNA (FANNY) Negative (NEGATIVE) Meds: Medications Discontinued Medications Generic Name Dose Route Start Last Admin Trade Name Freq PRN Reason Stop Dose Admin Ketorolac Tromethamine 15 mg 10/27/21 05:35 10/27/21 05:43 Ketorolac 15 Mg/Ml Sdv IM 10/27/21 05:36 15 mg ONETIME ONE Administration Departure - Departure Time of Disposition: 06:05 Disposition: Home, Self-Care 01 Clinical Impression: Viral URI with cough - Discharge Information Instructions: Upper Respiratory Infection, Adult Referrals: PCP,None [Primary Care Provider] - Forms: ED Department Discharge Additional Instructions: I recommend use of ibuprofen and Tylenol every 6-8 hours as needed for pain. Ensure you drink plenty of fluids. Return to the emergency room for worsening symptoms or any other emergent concerns. Sepsis Event Note (ED) - Evaluation Sepsis Screening Result: No Definite Risk - Focused Exam Vital Signs: Vital Signs Temp Pulse Resp BP Pulse Ox 12/25/21 05:19 36.4 C 87 18 141/90 H 95 - Assessment/Plan Assessment:: Patient is 36 with sore throat and cough. Nontoxic in appearance. No evidence of retropharyngeal abscess, peritonsillar abscess or other serious bacterial pathology. Covid and flu negative. Given instructions for supportive care. Discharged in stable condition.
[2021-10-27 06:03] LABS: CORONAVIRUS COVID-19 NAA NEGATIVE (NEGATIVE)
== END 2021-10-27 06:10 | disposition home or self-care (01) ==
LOC: JD.ED 05:01
DX: J06.9 Acute upper respiratory infection, unspecified (principal); Z72.0 Tobacco use; Z20.822 Contact with and (suspected) exposure to COVID-19
CPT/HCPCS: 0240U; 96372; 99283; J1885

== ENCOUNTER 2022-01-14 19:59 | Emergency (ER) | payer MEDICAID ==
[2022-01-14 20:31] VITALS: BP 129/78; PULSE 66
== END 2022-01-14 21:58 ==
LOC: JD.ED 19:59
DX: F10.129 Alcohol abuse with intoxication, unspecified (principal)
CPT/HCPCS: 81003; 93005; 93010; 99284; 99284-25

== ENCOUNTER 2022-01-15 14:18 | Emergency (ER) | payer MEDICAID ==
[2022-01-15] MEDS ORDERED: Sodium Chloride 0.9% 10 ML Syringe FLUSH PRN (14:23)
[2022-01-15 15:15] VITALS: BP 146/96
[2022-01-15 15:33] LABS: ACETAMINOPHEN 0 ug/mL (10-30)
[2022-01-15] MEDS ORDERED: levETIRAcetam 1,000 MG in Sodium Chloride 0.9% 100 ML IV ONE (16:12)
[2022-01-15] MEDS ORDERED: propofoL 100 ML ONE ×2 (16:37→18:13)
[2022-01-15] MEDS ORDERED: Etomidate 2 MG/ML 20 ML SDV IVPUSH ONE ×2 (16:55→17:30)
[2022-01-15] MEDS ORDERED: Succinylcholine 200 MG/10 ML MDV IV STA (16:55)
[2022-01-15] MEDS ORDERED: propofoL 100 ML IV SCH ×2 (17:00→19:00)
[2022-01-15] MEDS ORDERED: Succinylcholine 200 MG/10 ML MDV ONE (17:30)
[2022-01-15] MEDS ORDERED: Midazolam 1 MG/ML 5 ML SDV ONE ×2 (17:30)
[2022-01-15] MEDS ORDERED: Rocuronium 50 MG/5 ML Vial ONE (18:13)
[2022-01-15] MEDS ORDERED: Rocuronium 50 MG/5 ML Vial IVPUSH ONE (18:49)
[2022-01-15 19:10] VITALS: PULSE 115
== END 2022-01-15 18:10 ==
LOC: JD.ED 14:18
DX: T71.192A Asphyxiation due to mechanical threat to breathing due to other causes, intentional self-harm, initial encounter (principal); F15.10 Other stimulant abuse, uncomplicated; R40.2431 Glasgow coma scale score 3-8, in the field [EMT or ambulance]; Z20.822 Contact with and (suspected) exposure to COVID-19
CPT/HCPCS: 31500; 36415; 36556; 43752; 51702; 70450; 70490; 71045; 80053; 80143; 80179; 80306; 80307; 83735; 84484; 85025; 87635; 93005; 96365; 99285; J0330; J1953; J2250; J2704; J3490; 93010; 99291; U0002

== ENCOUNTER 2022-03-20 23:49 | Emergency (ER) | payer MEDICAID ==
[2022-03-21] MEDS ORDERED: Naloxone 0.4 MG/ML SDV IVPUSH ONE ×2 (00:18→00:30)
[2022-03-21] MEDS: Lactated Ringers 1,000 ML IV SCH ×2 (00:22→03:35)
[2022-03-21] MEDS ORDERED: Naloxone 2 MG/2 ML Syringe IVPUSH ONE (00:35)
[2022-03-21] MEDS ORDERED: Lactated Ringers 1,000 ML IV SCH (03:45)
[2022-03-21 09:06] VITALS: BP 113/76; PULSE 65
== END 2022-03-21 09:00 | disposition home or self-care (01) ==
LOC: JD.ED 23:49
DX: T50.901A Poisoning by unspecified drugs, medicaments and biological substances, accidental (unintentional), initial encounter (principal); Z20.822 Contact with and (suspected) exposure to COVID-19
CPT/HCPCS: 36415; 36600; 80053; 80306; 80307; 81001; 82803; 83605; 85025; 87635; 93005; 96361; 96374; 99285; J2310; J7120; 93010; 99283; U0002

== ENCOUNTER 2022-04-19 16:13 | Emergency (ER) | payer MEDICAID ==
[2022-04-19 16:25] VITALS: BP 119/87; PULSE 103
[2022-04-19] MEDS ORDERED: Sodium Chloride 0.9% 1,000 ML IV SCH (16:30)
== END 2022-04-19 16:38 | disposition home or self-care (01) ==
LOC: JD.ED 16:13
DX: T40.411A Poisoning by fentanyl or fentanyl analogs, accidental (unintentional), initial encounter (principal)
CPT/HCPCS: 99283

== ENCOUNTER 2022-07-03 14:48 | Emergency (ER) | payer MEDICAID, OTHER ==
[2022-07-03 15:26] VITALS: BP 150/109; PULSE 85
[2022-07-03] MEDS: Naloxone 2 MG/2 ML Syringe IVPUSH ONE ×2 (15:57)
[2022-07-03] MEDS: Sodium Chloride 0.9% 10 ML Syringe FLUSH PRN (15:57)
[2022-07-03] MEDS: Ondansetron 4 MG Tab.DIS PO ONE (17:44)
[2022-07-03] MEDS: HYDROmorphone 1 MG/ML Syringe IM ONE (17:44)
[2022-07-03] MEDS: Ondansetron 4 MG/2 ML SDV IVPUSH ONE (17:45)
== END 2022-07-03 19:01 ==
LOC: JD.ED 14:48
DX: F11.10 Opioid abuse, uncomplicated (principal); T40.415A Adverse effect of fentanyl or fentanyl analogs, initial encounter
CPT/HCPCS: 96372; 96374; 99284; A9270; J1170; J2310; J3490

== ENCOUNTER 2023-10-06 21:19 | Emergency (ER) | payer MEDICAID ==
[2023-10-06] MEDS ORDERED: Naloxone 0.4 MG/ML SDV IVPUSH ONE (22:08)
[2023-10-07 01:16] LABS: BASOPHILS PERCENT AUTO 0.3 % (0.0-1.0); EOSINOPHILS ABSOLUTE AUTO 0.1 K/mm3 (0.0-0.4); EOSINOPHILS PERCENT AUTO 1.5 % (0.0-6.0); HEMATOCRIT 35.9 % (42.0-52.0); HEMOGLOBIN 12.5 gm/dl (14.0-18.0); IMMATURE GRAN ABSOLUTE AUTO 0.01 K/mm3 (0.00-0.05); IMMATURE GRAN PERCENT AUTO 0.2 % (0.0-0.4); LYMPHOCYTES ABSOLUTE AUTO 1.3 K/mm3 (1.0-4.8); MEAN CORPUSCULAR HEMOGLOBIN 31.1 pg (28.0-32.0); MEAN CORPUSCULAR HGB CONC 34.8 g/dl (32.0-36.0); MEAN CORPUSCULAR VOLUME 89.3 fl (83.0-99.0); MEAN PLATELET VOLUME 10.8 fl (9.4-12.4); MONOCYTES ABSOLUTE AUTO 0.5 K/mm3 (0.0-0.8); MONOCYTES PERCENT AUTO 7.7 % (0.0-8.0); NEUTROPHILS ABSOLUTE AUTO 4.2 K/mm3 (1.8-7.7); NEUTROPHILS PERCENT AUTO 69.3 % (41.0-71.0); PLATELET COUNT,PLT 156 K/mm3 (150-400); RED BLOOD CELL COUNT 4.02 M/mm3 (4.52-5.90)
[2023-10-07 01:45] LABS: A/G RATIO 1.4 (1-2); ANION GAP 13.8 (5-15); BUN/CREATININE RATIO 17.3 (14-18); CREATININE 1.1 mg/dL (0.7-1.3); EST CRCL DRUG DOSING (CG) 97.93 mL/min; POTASSIUM,K 3.8 mEq/L (3.5-5.1); PROTEIN TOTAL,TP 6.8 g/dl (6.4-8.2)
[2023-10-07 03:15] VITALS: BP 119/79; PULSE 74
== END 2023-10-07 03:05 | disposition home or self-care (01) ==
LOC: JD.ED 21:19
DX: T40.2X4A Poisoning by other opioids, undetermined, initial encounter (principal); Z79.899 Other long term (current) drug therapy
CPT/HCPCS: 36415; 70450; 80053; 85025; 96374; 99285; J2310; 99284

== ENCOUNTER 2025-02-22 02:13 | Emergency (ER) | payer BC, MEDICAID ==
[2025-02-22 03:38] VITALS: BP 144/91; PULSE 64
== END 2025-02-22 03:44 ==
LOC: JD.ED 02:13
DX: Z02.89 Encounter for other administrative examinations (principal); F15.10 Other stimulant abuse, uncomplicated; J45.909 Unspecified asthma, uncomplicated
CPT/HCPCS: 99283

== ENCOUNTER 2025-05-06 12:59 | Emergency (ER) | payer MEDICAID ==
[2025-05-06 13:32] LABS: APPEARANCE,URINE CLEAR (Clear); GLUCOSE,URINE NEGATIVE (Negative); OCCULT BLOOD,URINE NEGATIVE (Negative)
[2025-05-06 13:42] LABS: BUPRENORPHINE SCREEN,URINE NEGATIVE (CUTOFF=10); METHADONE SCREEN, URINE NEGATIVE (CUT0FF=200); METHAMPHETAMINES SCREEN, URINE NEGATIVE (CUTOFF=500); OXYCODONE SCREEN,URINE NEGATIVE (CUT0FF=100); THC SCREEN,URINE 20 NG/ML NEGATIVE (CUTOFF=50)
[2025-05-06 13:42] LABS: BASOPHILS ABSOLUTE AUTO 0.0 K/mm3 (0.0-0.2); BASOPHILS PERCENT AUTO 0.3 % (0.0-1.0); EOSINOPHILS ABSOLUTE AUTO 0.1 K/mm3 (0.0-0.4); EOSINOPHILS PERCENT AUTO 0.8 % (0.0-6.0); IMMATURE GRAN ABSOLUTE AUTO 0.01 K/mm3 (0.00-0.05); IMMATURE GRAN PERCENT AUTO 0.1 % (0.0-0.4); LYMPHOCYTES ABSOLUTE AUTO 1.4 K/mm3 (1.0-4.8); LYMPHOCYTES PERCENT AUTO 18.7 % (24.0-44.0); MEAN PLATELET VOLUME 11.0 fl (9.4-12.4); MONOCYTES ABSOLUTE AUTO 0.5 K/mm3 (0.0-0.8); MONOCYTES PERCENT AUTO 6.9 % (0.0-8.0); NEUTROPHILS ABSOLUTE AUTO 5.6 K/mm3 (1.8-7.7); NEUTROPHILS PERCENT AUTO 73.2 % (41.0-71.0); NRBC ABSOLUTE 0.00 (0.00-0.02); NRBC PERCENT 0.0 % (0.0-0.2); PLATELET COUNT,PLT 190 K/mm3 (150-400); RED BLOOD CELL COUNT 4.48 M/mm3 (4.52-5.90); WHITE BLOOD CELL COUNT,WBC 7.66 K/mm3 (3.9-11.3)
[2025-05-06 13:45] LABS: O2 SATURATION VENOUS 87.9; PCO2 VENOUS 36.0 mmHg (41-51); PH,VENOUS 7.53 (7.30-7.40); PO2 VENOUS 53.0 mmHG (40-80)
[2025-05-06 13:45] LABS: AMPHETAMINES SCREEN, URINE NEGATIVE (CUTOFF=500)
[2025-05-06 13:46] LABS: BASE EXCESS VENOUS 7.2 (-4.0-2.0); BICARBONATE,VENOUS 30.1 meq/L (22-26)
[2025-05-06] MEDS: Naloxone 0.4 MG/ML SDV IVPUSH ONE (13:48)
[2025-05-06 13:52] LABS: EPITHELIAL CELLS,URINE 0-5 /hpf (0-5)
[2025-05-06] MEDS: LORazepam 2 MG/ML SDV IVPUSH ONE (14:00)
[2025-05-06 14:03] LABS: A/G RATIO 1.3 (1-2); ALANINE AMINOTRANSFERASE,ALT 23 U/L (16-63); ASPARTATE AMNIOTRANSFERASE,AST 16 U/L (15-37); BILIRUBIN TOTAL 0.7 mg/dL (0.2-1.0); BLOOD UREA NITROGEN,BUN 15 mg/dL (7-18); CARBON DIOXIDE,CO2 32 mEq/L (21-32); CHLORIDE,CL 106 mEq/L (98-107); CREATINE KINASE,CK 73 U/L (39-308); CREATININE 1.0 mg/dL (0.7-1.3); ESTIMATED GFR 99 mL/min (>60); GLUCOSE RANDOM 122 mg/dL (70-99); POTASSIUM,K 4.0 mEq/L (3.5-5.1); PROTEIN TOTAL,TP 6.6 g/dl (6.4-8.2); SODIUM,NA 143 mEq/L (136-145)
[2025-05-06 14:05] LABS: ETHANOL BLOOD MEDICAL 0.00 gm% (0.00)
[2025-05-06 14:06] VITALS: PULSE 76
[2025-05-06] MEDS: LORazepam 2 MG/ML SDV ONE (14:06)
[2025-05-06 14:16] LABS: INR 1.04
[2025-05-06 15:13] VITALS: BP 126/95
== END 2025-05-06 15:20 | disposition home or self-care (01) ==
LOC: JD.ED 12:59
DX: R56.9 Unspecified convulsions (principal); Z79.899 Other long term (current) drug therapy
CPT/HCPCS: 36415; 51701; 70450; 71045; 80053; 80143; 80179; 80306; 80307; 81001; 82550; 82803; 83605; 85025; 85610; 93005; 96374; 96375; 99285; C1758; J2060; J2310; 93010; 99284

== ENCOUNTER 2025-05-07 12:43 | Emergency (ER) | payer MEDICAID ==
[2025-05-07] MEDS ORDERED: Sodium Chloride 0.9% 10 ML Syringe FLUSH PRN (13:14)
[2025-05-07 13:27] LABS: BASOPHILS ABSOLUTE AUTO 0.0 K/mm3 (0.0-0.2); BASOPHILS PERCENT AUTO 0.1 % (0.0-1.0); EOSINOPHILS ABSOLUTE AUTO 0.1 K/mm3 (0.0-0.4); EOSINOPHILS PERCENT AUTO 0.9 % (0.0-6.0); IMMATURE GRAN ABSOLUTE AUTO 0.01 K/mm3 (0.00-0.05); IMMATURE GRAN PERCENT AUTO 0.1 % (0.0-0.4); LYMPHOCYTES ABSOLUTE AUTO 1.3 K/mm3 (1.0-4.8); LYMPHOCYTES PERCENT AUTO 19.3 % (24.0-44.0); MEAN PLATELET VOLUME 11.6 fl (9.4-12.4); MONOCYTES ABSOLUTE AUTO 0.5 K/mm3 (0.0-0.8); MONOCYTES PERCENT AUTO 8.0 % (0.0-8.0); NEUTROPHILS ABSOLUTE AUTO 4.8 K/mm3 (1.8-7.7); NEUTROPHILS PERCENT AUTO 71.6 % (41.0-71.0); NRBC ABSOLUTE 0.00 (0.00-0.02); NRBC PERCENT 0.0 % (0.0-0.2); PLATELET COUNT,PLT 186 K/mm3 (150-400); RED BLOOD CELL COUNT 4.35 M/mm3 (4.52-5.90); WHITE BLOOD CELL COUNT,WBC 6.72 K/mm3 (3.9-11.3)
[2025-05-07 13:43] LABS: LACTIC ACID 3.0 mmol/L (0.4-2.0)
[2025-05-07 13:46] LABS: A/G RATIO 1.2 (1-2); BILIRUBIN TOTAL 0.7 mg/dL (0.2-1.0); BLOOD UREA NITROGEN,BUN 18 mg/dL (7-18); CARBON DIOXIDE,CO2 27 mEq/L (21-32); CHLORIDE,CL 106 mEq/L (98-107); CREATININE 1.1 mg/dL (0.7-1.3); ESTIMATED GFR 88 mL/min (>60); GLUCOSE RANDOM 114 mg/dL (70-99); PHOSPHORUS 2.5 mg/dL (2.6-4.7); PROTEIN TOTAL,TP 6.4 g/dl (6.4-8.2); SODIUM,NA 141 mEq/L (136-145); TSH 0.297 uIU/mL (0.358-3.74)
[2025-05-07 13:47] LABS: ETHANOL BLOOD MEDICAL 0.00 gm% (0.00); POTASSIUM,K 4.3 mEq/L (3.5-5.1)
[2025-05-07 13:55] LABS: BASE EXCESS VENOUS 1.8 (-4.0-2.0); BICARBONATE,VENOUS 22.7 meq/L (22-26); O2 SATURATION VENOUS 100; PCO2 VENOUS 26.0 mmHg (41-51); PH,VENOUS 7.55 (7.30-7.40); PO2 VENOUS 100.0 mmHG (40-80)
[2025-05-07 14:12] LABS: APPEARANCE,URINE CLEAR (Clear); GLUCOSE,URINE NEGATIVE (Negative); OCCULT BLOOD,URINE NEGATIVE (Negative)
[2025-05-07 14:21] LABS: BUPRENORPHINE SCREEN,URINE NEGATIVE (CUTOFF=10); METHADONE SCREEN, URINE NEGATIVE (CUT0FF=200); METHAMPHETAMINES SCREEN, URINE PRESUMPTIVE POSITIVE (CUTOFF=500); OXYCODONE SCREEN,URINE NEGATIVE (CUT0FF=100); THC SCREEN,URINE 20 NG/ML NEGATIVE (CUTOFF=50)
[2025-05-07 14:37] LABS: AMPHETAMINES SCREEN, URINE PRESUMPTIVE POSITIVE (CUTOFF=500)
[2025-05-07 15:00] LABS: MEAN PLATELET VOLUME 11.9 fl (9.4-12.4); NRBC ABSOLUTE 0.00 (0.00-0.02); NRBC PERCENT 0.0 % (0.0-0.2); PLATELET COUNT,PLT 187 K/mm3 (150-400); RED BLOOD CELL COUNT 4.31 M/mm3 (4.52-5.90); WHITE BLOOD CELL COUNT,WBC 7.09 K/mm3 (3.9-11.3)
[2025-05-07] MEDS: Magnesium Sulfat/D5W 1GM/100ML 1 GM in Premix Bag 1 BAG IV ONE (16:12)
[2025-05-07 16:24] LABS: BAND PERCENT MAN 0 % (0-10); BASOPHILS PERCENT MAN 0 (0.2-1.2); EOSINOPHILS PERCENT MAN 1 % (0.8-7.0); LYMPHOCYTES % ATYPICAL MANUAL 6 %; LYMPHOCYTES PERCENT MAN 21 % (20-40); MONOCYTES PERCENT MAN 5 % (2-10)
[2025-05-07 16:26] LABS: PLATELET COUNT ESTIMATE ADEQUATE
[2025-05-07 17:20] VITALS: BP 134/85; PULSE 94
[2025-05-09 11:01] LABS: ALANINE AMINOTRANSFERASE,ALT 20 U/L (16-63); ASPARTATE AMNIOTRANSFERASE,AST 21 U/L (15-37)
[2025-05-10 06:42] LABS: INTACT PTH 26 pg/mL (15-65)
== END 2025-05-07 17:05 | disposition home or self-care (01) ==
LOC: JD.ED 12:43
DX: F15.10 Other stimulant abuse, uncomplicated (principal); R40.2431 Glasgow coma scale score 3-8, in the field [EMT or ambulance]; J45.909 Unspecified asthma, uncomplicated; Z79.51 Long term (current) use of inhaled steroids
CPT/HCPCS: 36415; 71045; 80053; 80306; 80307; 81003; 82803; 83605; 83735; 83970; 84100; 84439; 84443; 84481; 85007; 85025; 85027; 85379; 87040; 93005; 96365; 99285; C1758; J3475; J7030; 93010; 99284